=== PATIENT | female | born 1950 | race Caucasian/White ===

== ENCOUNTER 2018-01-16 11:46 | Day surgery (SDC) | payer MEDICARE, SELFPAY ==
[2018-01-16] VITALS (7 sets, daily range): BP systolic 110–116; BP diastolic 68–89; PULSE 57–78; RESP 11–20; TEMP 36.2–36.4; O2SAT 96–100; BMI 30.7
[2018-01-16] MEDS: SODIUM CHLORIDE 0.9% 1,000 ML 200 ML IV (13:21)
[2018-01-16] MEDS: MIDAZOLAM 5 MG/5 ML VIAL IV (14:04)
[2018-01-16] MEDS: fentaNYL 250 MCG/5 ML INJ IV (14:06)
--- NOTE | 2018-01-16 20:08 | OP_ITS ---
DATE OF SERVICE: 01/16/2018 PREOP DIAGNOSIS: Screening colonoscopy. POSTOP DIAGNOSES: Screening colonoscopy with sigmoid diverticulosis. OPERATION: Total colonoscopy to the cecum. SURGEON: Christos Bundy MD DESCRIPTION OF PROCEDURE: The patient was given conscious sedation, properly identified during surgical pause. The flexible fiberoptic colonoscope was inserted transanally to the cecum. Total IV sedation administered was Versed 6, fentanyl 250. Patient has sigmoid diverticulosis with some narrowing of the sigmoid. No tumors or polyps are identified anywhere in the colon. The colon is extremely tortuous, making this a rather difficult colonoscopy. However, I was able to pass the scope tip to the cecum. Again, there were no tumors, no polyps, no ulcerations. The procedure was well tolerated. FINAL DIAGNOSIS: Sigmoid diverticulosis. Basilia Ferreira - Shine/jeison doc#: [id number]/job#: [id number] dd: 01/16/2018 14:13:00 dt: 01/16/2018 20:04:00 DICTATING MD/COPIES TO: Christos Bundy MD COPIES MNE: MOE
--- NOTE | 2018-01-19 07:51 | HP_ITS ---
DATE OF SERVICE: 01/16/2018 PREOPERATIVE HISTORY AND PHYSICAL EXAMINATION HISTORY OF PRESENT ILLNESS: Patient's coming in for screening colonoscopy. She is asymptomatic. No abdominal pain. No melena. No hematochezia. She has never had a colonoscopy. PAST SURGICAL HISTORY: She's had a tubal ligation, tonsillectomy. No other surgery. PAST MEDICAL HISTORY: Denies heart disease, myocardial infarction, diabetes, stroke, hypertension. ALLERGIES: SHE HAS NO MEDICAL ALLERGIES. MEDICATIONS: She takes no medications at home. REVIEW OF SYSTEMS: Negative for exertional chest pain, anginal shortness of breath. GI is negative. : Negative. NEUROLOGIC: No strokes or TIAs. PHYSICAL EXAMINATION VITAL SIGNS: Blood pressure 120/80, heart rate 80s, regular. HEENT: Ears, nose, and throat normal. NECK: No adenopathy. CHEST: Lungs are clear. HEART: Regular rate and rhythm. No murmur. ABDOMEN: Soft, nontender. No masses. : Rectal will be done at time of colonoscopy. ASSESSMENT: Patient is here for a screening colonoscopy. Asymptomatic. Basilia Ferreira - /hannah/jeison doc#: [id number]/job#: [id number] dd: 01/16/2018 13:01:00 dt: 01/16/2018 14:06:00 DICTATING /COPIES TO: Christos Bundy MD COPIES MNE: MOE
== END 2018-01-16 15:08 | disposition home or self-care (01) ==
PROVIDERS: PCP Physician Assistant; Visit Provider Surgery
PROC: 0DJD8ZZ Inspection of Lower Intestinal Tract, Via Natural or Artificial Opening Endoscopic (ICD-10-PCS; CPT 45378; principal; 2018-01-16 12:45)
DX: Z12.11 Encounter for screening for malignant neoplasm of colon (principal); K57.30 Diverticulosis of large intestine without perforation or abscess without bleeding
CPT/HCPCS: G0121; J2250; J3010

== ENCOUNTER → 2020-05-12 08:23 | Outpatient (CLI) | payer MEDICARE, SELFPAY ==
[2020-05-12] MEDS: COVID-19 VACC #1, MRNA(MOD) 100 MCG/0.5 ML VIAL IM (08:27)
== END ==
PROVIDERS: PCP Physician Assistant; Visit Provider Internal Medicine
DX: Z23 Encounter for immunization (principal)
CPT/HCPCS: 0011A; 91301

== ENCOUNTER → 2020-06-09 10:23 | Outpatient (CLI) | payer MEDICARE, SELFPAY ==
[2020-06-09] MEDS: COVID-19 VACC #2, MRNA(MOD) 100 MCG/0.5 ML VIAL IM (10:28)
== END ==
PROVIDERS: PCP Physician Assistant; Visit Provider Internal Medicine
DX: Z23 Encounter for immunization (principal)
CPT/HCPCS: 0012A; 91301

== ENCOUNTER → 2021-05-12 11:42 | Outpatient (CLI) | payer MEDICARE, SELFPAY ==
[2021-05-12 12:59] LABS: COVID19 -Nasal RAPID Negative (Negative)
== END ==
PROVIDERS: PCP Physician Assistant; Visit Provider Physician Assistant
DX: Z20.822 Contact with and (suspected) exposure to COVID-19 (principal)
CPT/HCPCS: 87635

== ENCOUNTER → 2021-05-13 14:52 | Outpatient (CLI) | payer MEDICARE, SELFPAY ==
[2021-05-13 16:24] LABS: COVID19 -Nasal RAPID Negative (Negative)
== END ==
PROVIDERS: PCP Physician Assistant; Referring Provider Nurse Practitioner Critical Care Medicine; Visit Provider Nurse Practitioner Critical Care Medicine
DX: N39.0 Urinary tract infection, site not specified (principal); Z20.822 Contact with and (suspected) exposure to COVID-19
CPT/HCPCS: 87086; 87635

== ENCOUNTER 2021-05-13 15:51 | Emergency (ER) | payer MEDICARE, SELFPAY ==
[2021-05-13] VITALS (7 sets, daily range): BP systolic 102–121; BP diastolic 55–80; PULSE 94–117; RESP 20; TEMP 37.7; O2SAT 93–95; BMI 28.5
--- NOTE | 2021-05-13 16:09 | DI.RAD.S_ITS ---
PROCEDURE: XR CHEST 1V INDICATIONS: cough TECHNIQUE: One view of the chest was acquired. COMPARISON: None. FINDINGS: Surgical changes and devices: None. Lungs and pleura: Lungs are clear. No pleural effusions or pneumothorax. Elevated right hemidiaphragm Mediastinum: Mediastinal contours appear normal. Heart size is normal. Bones and chest wall: No suspicious bony lesions. Overlying soft tissues appear unremarkable. IMPRESSION: Elevated right hemidiaphragm. No acute cardiopulmonary findings Approved by: Emigdio Ellis M.D. on 05/13/2021 at 16:18
--- NOTE | 2021-05-13 16:09 | DI.CT.S_ITS ---
PROCEDURE: CT ABDOMEN PELVIS WO CON INDICATIONS: abdominal pain TECHNIQUE: After the administration of oral contrast, 5 mm thick sections acquired from the diaphragms to the symphysis. 5 mm coronal and sagittal reformats were performed. For radiation dose reduction, the following was used: automated exposure control, adjustment of mA and/or kV according to patient size. COMPARISON: None. FINDINGS: Lower thorax: The lung bases are clear. Heart size normal. No hiatal hernia. Liver: Normal in size and attenuation. No contour deformity present. Subcentimeter right hepatic hypodensity too small to characterize but probably reflects cyst. Biliary system: No calcified cholelithiasis or pericholecystic inflammation. No intra or extrahepatic bile duct dilatation. Pancreas: Unremarkable without mass or inflammation evident. Spleen: Normal in size and density. Adrenals: Normal morphology and density. Reproductive system: Unremarkable as visualized. Urinary system: Right kidney is enlarged, edematous, and there is perinephric stranding present with moderate hydronephrosis and hydroureter extending to a 5 mm ureteral calculus at the ureterovesical junction. Left kidney unremarkable without hydronephrosis. No nonobstructing calculi. Hypodensity in the right renal anterior cortex, subcentimeter, is probably reflects cyst. Gastrointestinal system: The bowel is unremarkable without evidence of bowel obstruction or inflammation. The stomach appears unremarkable. Multiple diverticula arise from the sigmoid colon without evidence of diverticulitis. Appendix: Normal appendix identified. No evidence of appendicitis. Peritoneal spaces: No mesenteric or retroperitoneal adenopathy. No free air. No free fluid. Vasculature: The IVC, aorta and iliac vasculature are unremarkable. Abdominal wall: Abdominal wall intact without evidence of ventral or inguinal hernias. Musculoskeletal: Normal bone mineralization. No acute fractures. Convex left thoracolumbar scoliosis noted. IMPRESSION: 1. Moderate right hydronephrosis hydroureter results from 5 mm right ureterovesical junction calculus. Associated right renal enlargement and edema with perinephric stranding. 2. Incidental diverticulosis without evidence of diverticulitis. Approved by: Emigdio Ellis M.D. on 05/13/2021 at 15:53
--- NOTE | 2021-05-13 16:12 | ED_ITS ---
HPI - Sepsis <Phillip Bullock PA-C - Last Filed: 05/13/21 18:06> General Chief Complaint: Upper Respiratory Symptoms Evaluation Narrative: Patient is a 70-year-old female who comes to the ED complaining of fatigue, weakness, nausea, vomiting, diarrhea, lower abdominal pain for the past week. Patient reports that she has done 3 at home tests was tested yesterday and was negative and was tested today for COVID. Patient is immunized for COVID however has not had a flu vaccine yet. Patient reports her vomiting and diarrhea have been over the last couple of days. Patient is not currently nauseated at this time. Patient denies headache fever chills. Review of Systems <Phillip Bullock PA-C - Last Filed: 05/13/21 18:06> Review of Systems ROS Unobtainable: All systems reviewed & are unremarkable except as noted in HPI and below Constitutional Constitutional: Denies chills, Reports fatigue, Reports fever(s), Denies frequent falls, Denies lethargy and Reports weakness Eyes Eyes: Denies change in vision, Denies eye discharge, Denies irritation and De nies loss of vision ENT Ears, Nose, Mouth, and Throat: Denies change in voice, Denies dizziness, Denies neck pain, Denies sore throat and Denies throat swelling Cardiovascular Cardiovascular: Denies chest pain, Denies irregular heart rhythm, Denies lightheadedness, Denies palpitations, Denies dyspnea, Denies dyspnea on exertion and Denies orthopnea Respiratory Respiratory: Denies cough, Denies dyspnea, Denies dyspnea on exertion and Denies wheezing Gastrointestinal Gastrointestinal: Denies abdominal pain, Denies change in bowel habits, Denies diarrhea, Denies nausea and Denies vomiting Genitourinary Genitourinary: Reports hematuria, Reports dysuria, Denies flank pain, Denies urinary incontinence and Reports urinary urgency Musculoskeletal Musculoskeletal: Denies back pain, Denies muscle weakness, Denies neck pain, Denies numbness and Denies tingling Integumentary/Breasts Skin/Breast: Denies pruritus, Denies erythema, Denies rash and Denies wounds Neurologic Neurologic: Denies behavioral changes, Denies confusion, Denies dizziness, Denies frequent falls, Denies loss of vision, Denies numbness, Denies tingling and Reports weakness Psychiatric Psychiatric: Denies anxiety, Denies behavioral changes, Denies confusion, Denies depression, Denies homicidal ideation and Denies suicidal ideation Endocrine Endocrine: Reports fatigue, Denies flushing and Denies palpitations Hematologic/Lymphatic Hematologic/Lymphatic: Denies easy bruising Allergic/Immunologic Allergic/Immunologic: Denies urticaria, Denies throat swelling and Denies wheezing Patient History <Phillip Bullock PA-C - Last Filed: 05/13/21 18:06> Medical History Acute viral syndrome Social History household members: spouse Smoking Status: Former smoker Smoking Status: Former smoker Exam <Phillip Bullock PA-C - Last Filed: 05/13/21 18:06> Initial Vital Signs Initial Vital Signs: Vital Signs Temperature 99.9 F H 05/13/21 16:07 Pulse Rate 117 H 05/13/21 16:07 Respiratory Rate 20 05/13/21 16:07 Blood Pressure 121/80 05/13/21 16:07 Pulse Oximetry 93 05/13/21 16:07 Const General: cooperative, healthy appearing and comfortable Nutritional Appearance: average body habitus Orientation: Orientation [facility] Head: normal to inspection Ears: hearing grossly normal bilaterally Nose: external nose normal Face and sinus: normal facial exam Mouth: oral mucosae normal Eyes General: appearance normal, both eyes and all related structures Pupils: PERRL Neck Neck: normal visual inspection, full ROM and no meningeal signs Thyroid: thyroid normal Resp Effort & Inspection: normal respiratory effort and able to speak in complete sentences Auscultation: clear to auscultation bilaterally Cardio Palpation: normal PMI Rate: regular rate Rhythm: regular rhythm GI Inspection: normal to inspection Palpation: soft and no hepatosplenomegaly Percussion: normal to percussion Auscultation: normal bowel sounds Neuro General: patient alert, patient awake and patient oriented x3 Cranial Nerves: CN's II-XI intact bilaterally <Zakiya Edwards MD - Last Filed: 05/14/21 08:30> Initial Vital Signs Initial Vital Signs: Vital Signs Temperature 99.9 F H 05/13/21 16:07 Pulse Rate 117 H 05/13/21 16:07 Respiratory Rate 20 05/13/21 16:07 Blood Pressure 121/80 05/13/21 16:07 Pulse Oximetry 93 05/13/21 16:07 Course <Phillip Bullock PA-C - Last Filed: 05/13/21 18:06> Orders Ordered: Discontinued Medications Hydrocodone Bitart/Acetaminophen (Hydrocodone/Acet 10/325 Tablet) 1 tab PO NOW ONE Stop: 05/13/21 18:24 Last Admin: 05/13/21 18:30 Dose: Not Given Documented by: ATAYLOR Nitrofurantoin Macrocrystals (Nitrofurantoin Er 100 Mg Capsule) 100 mg PO NOW ONE Stop: 05/13/21 18:24 Last Admin: 05/13/21 18:28 Dose: 100 mg Documented by: TOBIYLOR Tamsulosin HCl (Tamsulosin 0.4 Mg Capsule) 0.4 mg PO NOW ONE Stop: 05/13/21 18:24 Last Admin: 05/13/21 18:28 Dose: 0.4 mg Documented by: MARY KAY Vital Signs Vital signs: Vital Signs - 8 hr 05/13/21 16:07 05/13/21 16:28 05/13/21 16:30 Temperature 99.9 F H Pulse Rate 117 H 102 H 101 H Respiratory Rate 20 Blood Pressure 121/80 Pulse Oximetry 93 95 94 05/13/21 17:00 Temperature Pulse Rate 98 H Respiratory Rate Blood Pressure 107/67 Pulse Oximetry 93 <Zakiya Edwards MD - Last Filed: 05/14/21 08:30> Orders Ordered: Discontinued Medications Hydrocodone Bitart/Acetaminophen (Hydrocodone/Acet 10/325 Tablet) 1 tab PO NOW ONE Stop: 05/13/21 18:24 Last Admin: 05/13/21 18:30 Dose: Not Given Documented by: ATAYLOR Nitrofurantoin Macrocrystals (Nitrofurantoin Er 100 Mg Capsule) 100 mg PO NOW ONE Stop: 05/13/21 18:24 Last Admin: 05/13/21 18:28 Dose: 100 mg Documented by: MAGALYOR Tamsulosin HCl (Tamsulosin 0.4 Mg Capsule) 0.4 mg PO NOW ONE Stop: 05/13/21 18:24 Last Admin: 05/13/21 18:28 Dose: 0.4 mg Documented by: MARY KAY Vital Signs Vital signs: Vital Signs - 8 hr 05/13/21 16:07 05/13/21 16:28 05/13/21 16:30 Temperature 99.9 F H Pulse Rate 117 H 102 H 101 H Respiratory Rate 20 Blood Pressure 121/80 Pulse Oximetry 93 95 94 05/13/21 17:00 Temperature Pulse Rate 98 H Respiratory Rate Blood Pressure 107/67 Pulse Oximetry 93 Sepsis Guideline Criteria <Phillip Bullock PA-C - Last Filed: 05/13/21 18:06> Treatment Initiated Antibiotics:: IV antimicrobials will be initiated as soon as possible after recognition of sepsis state and within one hour for both sepsis and septic shock. MDM - Sepsis <Phillip Bullock PA-C - Last Filed: 05/13/21 18:06> Differential Diagnosis Current stage of sepsis: ruled out Lab Data Result diagrams: 05/13/21 16:10 05/13/21 16:10 Labs: Lab Results 05/13/21 05/13/21 05/13/21 Range/Units 16:10 16:10 16:31 WBC 19.3 H (4.5-11.0) X10^3/uL RBC 4.25 (4.0-5.2) X10^6/uL Hgb 13.4 (12.0-16.0) g/dL Hct 38.9 (36-46) % MCV 91.7 (80-100) fL MCH 31.6 (26-34) PG MCHC 34.4 (30-36) % RDW 12.9 (11.6-14.8) % Plt Count 151 (150-400) X10^3/uL Neut % (Auto) 92.6 H (50-75) % Lymph % (Auto) 3.6 L (25-40) % Taney % (Auto) 3.7 (3-14) % Eos % (Auto) 0.0 L (2-4) % Baso % (Auto) 0.1 (0-2) % Neut # (Auto) 96860 H (2974-1020) /uL Lymph # (Auto) 700 L (4188-5911) /uL Taney # (Auto) 700 (0-900) /uL Eos # (Auto) 0 (0-450) /uL Baso # (Auto) 0 (0-100) /uL Sodium 129 L (137-145) mmol/L Potassium 3.4 (3.4-5.1) mmol/L Chloride 96 L (98-107) mmol/L Carbon Dioxide 26 (22-32) mmol/L BUN 14 (7-17) mg/dL Creatinine 0.76 (0.52-1.04) mg/dL Estimated GFR > 60.0 (>60) mL/min BUN/Creatinine Ratio 18.4 (6-22) Glucose 125 H (80-110) mg/dL Calcium 9.2 (8.4-10.2) mg/dL Total Bilirubin 0.7 (0.2-1.3) mg/dL AST 62 H (14-36) IU/L ALT 49 H (<35) IU/L Alkaline Phosphatase 88 (38-126) U/L Total Protein 6.6 (6.3-8.2) g/dL Albumin 3.5 (3.5-5.0) g/dL Globulin 3.1 (1.7-4.1) g/dL Albumin/Globulin Ratio 1.1 (1.0-2.8) Lipase 22 L (23-300) U/L Chlamy pneumoniae PCR Not detected (Not Detect) Adenovirus (PCR) Not detected (Not Detect) B. pertussis DNA (PCR) Not detected (Not Detecte) B.parapertussis DNA PCR Not detected (Not Detecte) Coronavirus OC43 (PCR) Not detected (Not Detect) Coronavirus HKU1 (PCR) Not detected (Not Detect) Coronavirus 229E (PCR) Not detected (Not Detect) SARS-CoV-2 (PCR) Not detected (Not Detecte) Coronavirus NL63 (PCR) Not detected (Not Detect) Human Metapneumovir PCR Not detected (Not Detect) Influenza Type A (PCR) Not detected (Not Detect) Influenza Type B (PCR) Not detected (Not Detect) M. pneumoniae (PCR) Not detected (Not Detect) Parainfluenza 1 (PCR) Not detected (Not Detect) Parainfluenza 2 (PCR) Not detected (Not Detect) Parainfluenza 3 (PCR) Not detected (Not Detect) Parainfluenza 4 (PCR) Not detected (Not Detect) RSV (PCR) Not detected (Not Detect) Entero/Rhino (PCR) Not detected (Not Detect) Imaging Data Chest x-ray: Radiologist's Impression: PROCEDURE:? XR CHEST 1V ? INDICATIONS:? cough ? TECHNIQUE:? One view of the chest was acquired.? ? COMPARISON:? None. ? FINDINGS:? ? Surgical changes and devices:? None.? ? Lungs and pleura:? Lungs are clear.? No pleural effusions or pneumothorax.? Elevated right hemidiaphragm ? Mediastinum:? Mediastinal contours appear normal.? Heart size is normal.? ? Bones and chest wall:? No suspicious bony lesions.? Overlying soft tissues appear unremarkable.? ? IMPRESSION:? Elevated right hemidiaphragm.? No acute cardiopulmonary findings ? ? ? Approved by: Emigdio Ellis M.D. on 05/13/2021 at 16:18? CT Abd/Pelvis: Radiologist's Impression: PROCEDURE:? CT ABDOMEN PELVIS WO CON ? INDICATIONS:? abdominal pain ? TECHNIQUE:? After the administration of oral contrast, 5 mm thick sections acquired from the diaphragms to the symphysis.? 5 mm coronal and sagittal reformats were performed.? For radiation dose reduction, the following was used:? automated exposure control, adjustment of mA and/or kV according to patient size.? ? COMPARISON:? None. ? FINDINGS: ? Lower thorax: The lung bases are clear.? Heart size normal.? No hiatal hernia. ? Liver:? Normal in size and attenuation. No contour deformity present.? Subcentimeter right hepatic hypodensity too small to characterize but probably reflects cyst. ? Biliary system:? No calcified cholelithiasis or pericholecystic inflammation. No intra or extrahepatic bile duct dilatation. ? Pancreas:? Unremarkable without mass or inflammation evident. ? Spleen:? Normal in size and density. ? Adrenals:? Normal morphology and density. ? Reproductive system:? Unremarkable as visualized. ? Urinary system:? Right kidney is enlarged, edematous, and there is perinephric stranding present with moderate hydronephrosis and hydroureter extending to a 5 mm ureteral calculus at the ureterovesical junction.? Left kidney unremarkable without hydronephrosis.? No nonobstructing calculi.? Hypodensity in the right renal anterior cortex, subcentimeter, is probably reflects cyst. ? Gastrointestinal system:? The bowel is unremarkable without evidence of bowel obstruction or inflammation. The stomach appears unremarkable.? Multiple diverticula arise from the sigmoid colon without evidence of diverticulitis. ? ? Appendix:? Normal appendix identified.? No evidence of appendicitis. ? Peritoneal spaces:? No mesenteric or retroperitoneal adenopathy.? No free air.? No free fluid.? ? Vasculature:? The IVC, aorta and iliac vasculature are unremarkable. ? Abdominal wall:? Abdominal wall intact without evidence of ventral or inguinal hernias. ? Musculoskeletal:? Normal bone mineralization.? No acute fractures.? Convex left thoracolumbar scoliosis noted. ? IMPRESSION: ? 1. Moderate right hydronephrosis hydroureter results from 5 mm right ureterovesical junction calculus.? Associated right renal enlargement and edema with perinephric stranding. ? 2. Incidental diverticulosis without evidence of diverticulitis. MDM Narrative Medical decision making narrative: Patient was seen in the ED for fatigue right-sided low back pain lower abdominal pain dysuria. Lab workup and imaging studies revealed a neutrophilic leukocyto sis with a kidney stone on the right side with mild hydronephrosis measuring 5 mm. Urine revealed evidence of a urinary tract infection and chemistry panel showed mild hyponatremia. Spoke with patient about the lab findings patient would prefer to be treated outpatient. I spoke to her about increasing her salt intake with to help correct the mild hyponatremia an antibiotic will be prescribed for urinary infection some Flomax will also be prescribed to help pass her kidney stone. I advised her if there was no improvement in her symptoms the next day or 2 to return to the ED or follow-up with PCP. All questions and concerns were addressed. <Zakiya Edwards MD - Last Filed: 05/14/21 08:30> Lab Data Labs: Lab Results 05/13/21 05/13/21 05/13/21 Range/Units 16:10 16:10 16:31 WBC 19.3 H (4.5-11.0) X10^3/uL RBC 4.25 (4.0-5.2) X10^6/uL Hgb 13.4 (12.0-16.0) g/dL Hct 38.9 (36-46) % MCV 91.7 (80-100) fL MCH 31.6 (26-34) PG MCHC 34.4 (30-36) % RDW 12.9 (11.6-14.8) % Plt Count 151 (150-400) X10^3/uL Neut % (Auto) 92.6 H (50-75) % Lymph % (Auto) 3.6 L (25-40) % Taney % (Auto) 3.7 (3-14) % Eos % (Auto) 0.0 L (2-4) % Baso % (Auto) 0.1 (0-2) % Neut # (Auto) 83135 H (8955-5649) /uL Lymph # (Auto) 700 L (8341-9222) /uL Taney # (Auto) 700 (0-900) /uL Eos # (Auto) 0 (0-450) /uL Baso # (Auto) 0 (0-100) /uL Sodium 129 L (137-145) mmol/L Potassium 3.4 (3.4-5.1) mmol/L Chloride 96 L (98-107) mmol/L Carbon Dioxide 26 (22-32) mmol/L BUN 14 (7-17) mg/dL Creatinine 0.76 (0.52-1.04) mg/dL Estimated GFR > 60.0 (>60) mL/min BUN/Creatinine Ratio 18.4 (6-22) Glucose 125 H (80-110) mg/dL Calcium 9.2 (8.4-10.2) mg/dL Total Bilirubin 0.7 (0.2-1.3) mg/dL AST 62 H (14-36) IU/L ALT 49 H (<35) IU/L Alkaline Phosphatase 88 (38-126) U/L Total Protein 6.6 (6.3-8.2) g/dL Albumin 3.5 (3.5-5.0) g/dL Globulin 3.1 (1.7-4.1) g/dL Albumin/Globulin Ratio 1.1 (1.0-2.8) Lipase 22 L (23-300) U/L Chlamy pneumoniae PCR Not detected (Not Detect) Adenovirus (PCR) Not detected (Not Detect) B. pertussis DNA (PCR) Not detected (Not Detecte) B.parapertussis DNA PCR Not detected (Not Detecte) Coronavirus OC43 (PCR) Not detected (Not Detect) Coronavirus HKU1 (PCR) Not detected (Not Detect) Coronavirus 229E (PCR) Not detected (Not Detect) SARS-CoV-2 (PCR) Not detected (Not Detecte) Coronavirus NL63 (PCR) Not detected (Not Detect) Human Metapneumovir PCR Not detected (Not Detect) Influenza Type A (PCR) Not detected (Not Detect) Influenza Type B (PCR) Not detected (Not Detect) M. pneumoniae (PCR) Not detected (Not Detect) Parainfluenza 1 (PCR) Not detected (Not Detect) Parainfluenza 2 (PCR) Not detected (Not Detect) Parainfluenza 3 (PCR) Not detected (Not Detect) Parainfluenza 4 (PCR) Not detected (Not Detect) RSV (PCR) Not detected (Not Detect) Entero/Rhino (PCR) Not detected (Not Detect) Discharge Plan Departure Patient Disposition: Home Clinical Impression: Right kidney stone, Complicated UTI (urinary tract infection), Acute hyponatremia Instructions: DI for Kidney Stones, DI for Urinary Tract Infection (UTI), DI for Hyponatremia Activity Restrictions/Additional Instructions: Today you were found to have a urinary tract infection a kidney stone measuring 5 mm in the right ureter causing some mild hydronephrosis of the right kidney and hyponatremia which is low sodium level. I will prescribe pain medication that I would take only as needed and I will also prescribe Flomax that will help to dilate your ureters to help passed her kidney stone. I would recommend you increase your salt intake with her food for the next day or 2 until your symptom s have resolved. The symptoms would include fatigue nausea and vomiting. The pain that is in her lower pelvis and right lower back is from the kidney stone and likely from the urinary tract infection. The symptoms should improve over the next few days as she take your antibiotic and help pass her kidney stones. If you have no improvement in your symptoms over the next day or 2 return to the ED immediately for re-evaluation. Otherwise you can follow-up with her primary care doctor in 1 week. Prescriptions: New tamsulosin [Flomax] 0.4 mg capsule 0.4 mg PO DAILY Qty: 14 0RF nitrofurantoin monohyd/m-cryst [Macrobid] 100 mg capsule 100 mg PO Q12H 5 Days Qty: 10 0RF Rx Instructions: must administer with a meal/food hydrocodone-acetaminophen 7.5-325 mg tablet 1 tab PO Q8H PRN (Reason: pain) Qty: 7 0RF No Action ibuprofen 200 mg tablet PO TID Qty: 0 0RF hydrocodone-acetaminophen [[place]] 5 MG/325 MG tablet 1 tab PO Q4HP PRNQty: 10 0RF tamsulosin [Flomax] 0.4 MG capsule,extended release 24hr 0.4 mg PO QDAY Qty: 10 0RF ondansetron [Zofran ODT] 4 MG tablet,disintegrating 4 mg Sublingual Q6HP PRNQty: 10 0RF Referrals: Brittany Bernal PA-C [Primary Care Provider] - <Zakiya Edwards MD - Last Filed: 05/14/21 08:30> Cosign ED Attending Cosignature Attestation: I was immediately available in the department for consultation throughout this patient's visit. I agree with documentation as above. Zakiya Edwards MD
[2021-05-13 16:15] LABS: Add Manual Diff / Slide Review NO; Basophils Absolute Auto 0 /uL (0-100); Basophils Percent Auto 0.1 % (0-2); Eosinophils Absolute Auto 0 /uL (0-450); Hematocrit 38.9 % (36-46); Hemoglobin 13.4 g/dL (12.0-16.0); Lymphocytes Absolute Auto 700 /uL (1100-4500); Lymphocytes Percent Auto 3.6 % (25-40); Mean Corpuscular HGB Conc 34.4 % (30-36); Mean Corpuscular Hemoglobin 31.6 PG (26-34); Mean Corpuscular Volume 91.7 fL (80-100); Monocytes Absolute Auto 700 /uL (0-900); Monocytes Percent Auto 3.7 % (3-14); Neutrophils Absolute Auto 17900 /uL (1500-7000); Neutrophils Percent Auto 92.6 % (50-75); Platelet Count 151 X10^3/uL (150-400); Red Blood Cell Count 4.25 X10^6/uL (4.0-5.2); Red Cell Distribution Width 12.9 % (11.6-14.8); White Blood Cell Count 19.3 X10^3/uL (4.5-11.0)
[2021-05-13 16:28] LABS: Alanine Aminotransferase 49 IU/L (<35); Albumin 3.5 g/dL (3.5-5.0); Albumin Globulin Ratio 1.1 (1.0-2.8); Alkaline Phosphatase 88 U/L (38-126); Aspartate Aminotransferase 62 IU/L (14-36); BUN Creatinine Ratio 18.4 (6-22); Bilirubin Total 0.7 mg/dL (0.2-1.3); Blood Urea Nitrogen 14 mg/dL (7-17); Calcium 9.2 mg/dL (8.4-10.2); Carbon Dioxide 26 mmol/L (22-32); Chloride 96 mmol/L (98-107); Estimated Glomerular Filt Rate > 60.0 mL/min (>60); Globulin 3.1 g/dL (1.7-4.1); Glucose 125 mg/dL (80-110); HEMOLYSIS < 15 (0-50); Lipase 22 U/L (23-300); Potassium 3.4 mmol/L (3.4-5.1); Sodium 129 mmol/L (137-145); Total Protein 6.6 g/dL (6.3-8.2)
[2021-05-13 17:30] LABS: Adenovirus Not Detected (Not Detect); B. parapertussis Not Detected (Not Detecte); Bordetella pertussis Not Detected (Not Detecte); Chlamydophila pneumoniae Not Detected (Not Detect); Coronavirus 229E Not Detected (Not Detect); Coronavirus HKU1 Not Detected (Not Detect); Coronavirus NL 63 Not Detected (Not Detect); Coronavirus OC43 Not Detected (Not Detect); Human Metapneumovirus Not Detected (Not Detect); Human Rhinovirus/Enterovirus Not Detected (Not Detect); Influenza A Not Detected (Not Detect); Influenza B Not Detected (Not Detect); Mycoplasma pneumoniae Not Detected (Not Detect); Parainfluenza Virus 1 Not Detected (Not Detect); Parainfluenza Virus 2 Not Detected (Not Detect); Parainfluenza Virus 3 Not Detected (Not Detect); Parainfluenza Virus 4 Not Detected (Not Detect); Respiratory Syncytial Virus Not Detected (Not Detect); SARS- CoV-2 Not Detected (Not Detecte)
[2021-05-13] MEDS: NITROFURANTOIN ER 100 MG CAPSULE PO (18:28)
[2021-05-13] MEDS: TAMSULOSIN 0.4 MG CAPSULE PO (18:28)
== END 2021-05-13 18:32 | disposition home or self-care (01) ==
PROVIDERS: Emergency Provider Physician Assistant; PCP Physician Assistant
DX: N13.2 Hydronephrosis with renal and ureteral calculous obstruction (principal); N39.0 Urinary tract infection, site not specified; E87.1 Hypo-osmolality and hyponatremia; R19.7 Diarrhea, unspecified; Z20.822 Contact with and (suspected) exposure to COVID-19
CPT/HCPCS: 36415; 71045; 74176; 80053; 83690; 85025; 87077; 87086; 87186; 87633; 87635; 99284

== ENCOUNTER → 2022-03-25 11:40 | Outpatient (CLI) | payer MEDICARE, SELFPAY ==
[2022-03-25 13:26] LABS: Alanine Aminotransferase 26 IU/L (<35); Albumin 4.2 g/dL (3.5-5.0); Albumin Globulin Ratio 1.4 (1.0-2.8); Alkaline Phosphatase 71 U/L (38-126); Aspartate Aminotransferase 26 IU/L (14-36); BUN Creatinine Ratio 27.4 (6-22); Bilirubin Total 0.4 mg/dL (0.2-1.3); Blood Urea Nitrogen 17 mg/dL (7-17); Calcium 9.1 mg/dL (8.4-10.2); Carbon Dioxide 28 mmol/L (22-32); Chloride 106 mmol/L (98-107); Cholesterol 294 mg/dL (140-199); Estimated Glomerular Filt Rate > 60 mL/min (>60); Glucose 98 mg/dL (80-110); HDL Cholesterol 63 mg/dL (40-60); HEMOLYSIS < 15 (0-50); LDL Cholesterol Calculated 207 mg/dL (<100); Magnesium 2.2 mg/dL (1.6-2.3); Potassium 4.1 mmol/L (3.4-5.1); Sodium 139 mmol/L (137-145); Total Protein 7.2 g/dL (6.3-8.2); Triglycerides 119 mg/dL (35-150)
[2022-03-25 13:41] LABS: Free T3, Triiodothyronine Free 3.43 pg/mL (2.77-5.27); Free T4, Direct Thyroxine 1.11 ng/dL (0.78-2.19)
[2022-03-25 13:55] LABS: Thyroid Stimulating Hormone 2.62 uIU/mL (0.47-4.68)
[2022-03-25 16:51] LABS: Hep C Virus Ab w/Reflex Quant NEGATIVE s/c (NEGATIVE)
[2022-03-26 09:37] LABS: Appearance Urine UA CLEAR; Bilirubin Urine UA NEGATIVE (NEGATIVE); Color Urine UA YELLOW; Glucose Urine UA NEGATIVE (Negative); Ketones Urine UA NEGATIVE (NEGATIVE); Leukocyte Esterase Urine UA 1+ (NEGATIVE); Nitrite Urine UA NEGATIVE (Negative); Occult Blood Urine UA NEGATIVE (Negative); Protein Urine UA TRACE (Negative); Urobilinogen Urine UA 0.2 E.U./dL (0.2)
[2022-03-26 09:39] LABS: pH Urine UA 5.5 (4.5-8.0)
[2022-03-26 09:42] LABS: Bacteria Urine Few (2-10); Culture Indicated Urine Specimen Cultured; RBC Urine None Seen (0-5/HPF); Squamous Epithelial Cell Urine 1-5 /HPF (0-5/HPF); WBC Urine 1-5/HPF (0-5/HPF)
[2022-03-26 10:01] LABS: Creatinine Urine Random 125.4 mg/dL
[2022-03-26 10:06] LABS: Microalbumi Creatinin Ratio Ur 7.9 ug/mg CR (<30)
== END ==
PROVIDERS: PCP Nurse Practitioner; Referring Provider Nurse Practitioner; Visit Provider Nurse Practitioner
DX: Z11.59 Encounter for screening for other viral diseases (principal); Z13.6 Encounter for screening for cardiovascular disorders; Z87.898 Personal history of other specified conditions; R00.0 Tachycardia, unspecified; Z12.11 Encounter for screening for malignant neoplasm of colon; R25.2 Cramp and spasm; R30.0 Dysuria
CPT/HCPCS: 36415; 80053; 80061; 81001; 82043; 82570; 83735; 84439; 84443; 84481; 86803; 87077; 87086; 87186

== ENCOUNTER → 2022-03-26 08:46 | Outpatient (CLI) | payer MEDICARE, SELFPAY ==
[2022-04-02 08:45] LABS: Fecal Immunochemical Test Negative (Negative)
== END ==
PROVIDERS: PCP Nurse Practitioner; Referring Provider Nurse Practitioner; Visit Provider Nurse Practitioner
DX: R00.0 Tachycardia, unspecified (principal); Z11.59 Encounter for screening for other viral diseases; Z12.11 Encounter for screening for malignant neoplasm of colon; Z13.6 Encounter for screening for cardiovascular disorders; Z87.898 Personal history of other specified conditions
CPT/HCPCS: 82274

== ENCOUNTER → 2022-03-29 15:14 | Outpatient (CLI) | payer MEDICARE, SELFPAY ==
--- NOTE | 2022-03-29 15:15 | DI.MG.S_ITS ---
BILATERAL DIGITAL SCREENING MAMMOGRAM 3D/2D WITH CAD: 03/29/2022 CLINICAL: Routine screening. New Baseline exam. Comparison is made to exam dated: 08/26/2014 mammogram - [facility]. Both breasts are heterogeneously dense, which may obscure small masses (category c / 51-75% glandular tissue). Current study was also evaluated with a Computer Aided Detection (CAD) system. No significant masses, calcifications, or other findings are seen in either breast. There has been no significant interval change. IMPRESSION: NEGATIVE There is no mammographic evidence of malignancy. A 1 year screening mammogram is recommended. Based on the Tyrer Cuzick model (a risk assessment model) the patient's lifetime risk is 5.6% and her 10 year risk is 3.3%. According to the ACR, ACS, and NCCN guidelines, an annual breast MRI exam along with mammogram is recommended if the patient's lifetime risk is 20% or greater. This exam was interpreted at Station ID: [id number]. NOTE: For mammograms, a report in lay terms will be sent to the patient. Approximately 15% of breast malignancies will not be visualized mammographically. In the management of a palpable breast mass, a negative mammogram must not discourage biopsy of a clinically suspicious lesion. Electronically Signed By: Romario watkins/kerri:03/29/2022 20:21:45 letter sent: Normal Exam ACR BI-RADS Category 1: Negative [id number]
== END ==
PROVIDERS: Family Provider Nurse Practitioner; PCP Nurse Practitioner; Referring Provider Nurse Practitioner; Visit Provider Nurse Practitioner
DX: Z12.31 Encounter for screening mammogram for malignant neoplasm of breast (principal); Z13.820 Encounter for screening for osteoporosis; M85.852 Other specified disorders of bone density and structure, left thigh; Z78.0 Asymptomatic menopausal state
CPT/HCPCS: 77063; 77067; 77080

== ENCOUNTER → 2022-04-05 13:07 | Outpatient (CLI) | payer MEDICARE, SELFPAY ==
[2022-04-05 13:41] LABS: Appearance Urine UA CLEAR; Bilirubin Urine UA NEGATIVE (NEGATIVE); Color Urine UA YELLOW; Glucose Urine UA NEGATIVE (Negative); Ketones Urine UA NEGATIVE (NEGATIVE); Leukocyte Esterase Urine UA TRACE (NEGATIVE); Nitrite Urine UA NEGATIVE (Negative); Occult Blood Urine UA NEGATIVE (Negative); Protein Urine UA NEGATIVE (Negative); Urobilinogen Urine UA 0.2 E.U./dL (0.2)
[2022-04-05 13:51] LABS: Bacteria Urine None Seen; Culture Indicated Urine Cult Not Indicated; RBC Urine None Seen (0-5/HPF); Squamous Epithelial Cell Urine 0-1 /HPF (0-5/HPF); WBC Urine 0-1/HPF (0-5/HPF)
== END ==
PROVIDERS: Family Provider Nurse Practitioner; PCP Nurse Practitioner; Referring Provider Nurse Practitioner; Visit Provider Nurse Practitioner
DX: R30.0 Dysuria (principal)
CPT/HCPCS: 81001; 87086

== ENCOUNTER 2022-06-17 16:45 | Outpatient (RCR) | payer MEDICARE, SELFPAY ==
--- NOTE | 2022-05-21 17:45 | PT.OIE ---
Current Diagnoses Pain in right hip (05/21/22) Pain in right knee (05/21/22) Other bursitis of hip, right hip (05/21/22) Iliotibial band syndrome, right leg (05/21/22) Past Medical History (Last Reviewed 05/20/22 @ 11:32 by TAZ Stoner) Acne (~1966) Acute viral syndrome Cataracts, bilateral (~2015) Chicken pox (~1960) Eczema (~2000) Herpes (~1974) History of urinary incontinence (~2020) HLD (hyperlipidemia) Right kidney stone (~2018) Rosacea Past Surgical History (Last Reviewed 05/20/22 @ 11:32 by TAZ Stoner) Anesthesia History of tubal ligation (~1992) Visit Care Team Role Provider Type TAZ Stoner Attending Provider Advanced Access Database Developer Family Provider Primary Care Provider Referring Provider Specialty: Family Practice Address: [address] [place] [address], [facility] Email: [email or web address] Physical Therapy Initial Evaluation PT-OP-A Visit Information Start: 05/21/22 14:07 Freq: Status: Active Protocol: Document 05/21/22 11:15 DCW (Rec: 05/21/22 14:21 DCW [id number]) Out-Patient Physical Therapy Visit Information Visit Information Visit Type Initial Evaluation Visit Start Time 11:15 Visit Stop Time 12:00 Total Visit Minutes 45 Visit Number 1 Number of ASSISTANT GROCERY Visits 0 Evaluation Information Evaluation Date 05/21/22 PT-OP-B Current Condition Start: 05/21/22 14:07 Freq: Status: Active Protocol: Document 05/21/22 11:15 DCW (Rec: 05/21/22 14:21 DC [id number]) Current Condition History of Current Condition Onset Date Approx six month history Current Complaints Right hip and knee pain/ stiffness History of Current Condition Pt is a 71 year old female presenting with complaints of hip and knee pain over the past six months. Pt reports that she had been kneeling a lot while gardening, and was having a lot of increased left knee pain, so she was really babying her left leg and trying to not irritate it, but as it improved, her right hip and knee began to bother her a lot more. Currently hurts the most when first getting up from sitting from an extended period of time. Admits it limits her from walking at her normal speed, and even caused her to trip and fall two days ago, because she couldn't lift her right leg up over an obstacle when out hiking. Reports pain is largely located in the lateral hip and knee, it doesn't feel like it is an actual joint problem, just pain around the area of the joints. Treatment Goals Patient/Caregiver Goals Improve right leg pain and stiffness, improve gait speed PT-OP-C Subjective Start: 05/21/22 14:07 Freq: Status: Active Protocol: Document 05/21/22 11:15 DCW (Rec: 05/21/22 14:21 DCW [id number]) OP-PT Subjective Patient Comments Patient Comments My left knee pain got better after taking it easy for about two months, I'm just wondering why this one is taking so much longer. PT-OP-F Manual Assessment Start: 05/21/22 14:07 Freq: Status: Active Protocol: Document 05/21/22 11:15 DCW (Rec: 05/21/22 14:21 DCW [id number]) Manual Assessments Soft Tissue Assessment Soft Tissue Mobility Assessment Tenderness to palpation 3/4: wincing and withdraw along right lateral hip, knee, and along ITB. Increased, point- specific pain at location of greater trochanteric bursa Joint Mobility Assessment Joint Mobility Assessment Knee and hip mobility WNL during passive testing, although pt exhibits limitations of movement secondary to hamstring tightness PT-OP-L Special Tests Start: 05/21/22 14:07 Freq: Status: Active Protocol: Document 05/21/22 11:15 DCW (Rec: 05/21/22 14:21 DCW [id number]) Special Tests Hip Special Tests Straight Leg Raise Test Results R hamstring tightness at 65? Piriformis Test Results Negative CAROL Test Results Lateral hip tightness right Knee Special Tests Gordo's Test Test Results Positive R PT-OP-M Strength Start: 05/21/22 14:07 Freq: Status: Active Protocol: Document 05/21/22 11:15 DCW (Rec: 05/21/22 14:21 DCW [id number]) Hip Strength Hip Manual Muscle Testing Right Flexion (L2) 4 Good Abduction 4 Good Adduction 4 Good External Rotation 4+ Good+ Internal Rotation 4+ Good+ Left Flexion (L2) 4- Good- Abduction 4- Good- Adduction 4- Good- External Rotation 4+ Good+ Internal Rotation 4+ Good+ Comments Resisted IR results in increased lateral knee pain PT-OP-Q Treatments Start: 05/21/22 14:07 Freq: Status: Active Protocol: Document 05/21/22 11:15 DCW (Rec: 05/21/22 14:21 DCW [id number]) Therapeutic Exercises Supine Exercises ITB Stretch Supine Exercise Name Hamstring stretch into horizontal adduction with strap Side right PT-OP-T Assessment and Plan Start: 05/21/22 14:07 Freq: Status: Active Protocol: Document 05/21/22 11:15 DCW (Rec: 05/21/22 17:45 DCW [id number]) Physical Therapy Assessment Rehab Potential Rehabilitation Potential Good Evaluation Complexity Number of Personal Factors/Comorbidities 1-2 Number of Body Systems Impaired 1-2 Clinical Presentation at Evaluation Stable Impairments Impairments Functional Activities, Functional Mobility,Pain,ROM, Soft Tissue Mobility,Strength, Tone Goals Two Impairment Pt struggles to get her foot up in order to don her socks Brakeshoe Repairer Goal (LTG) Pt to exhibit improved ability to don sock on right foot with improved hip flexion and external rotation to place right foot on left knee. LTG Duration 07/20/22 One Impairment Pt does not have an appropriate home exercise program Short Term Goal (STG) Pt to be independent and compliant with an appropriate HEP STG Duration 06/19/22 Assessment Summary Assessment Pt presents with signs and symptoms consistent with Greater Trochanteric bursitis and ITB syndrome. Pt shows significant, point-specific pain immediately superior to her GT, as well as a more generalized soreness and tightness along entire lateral right thigh. Additionally, pt has some increased tone and tightness at proximal lateral calf. Pt should benefit from skilled therapy focusing on decreasing tone, improving flexibility and strength, decreasing inflammation and pain, and LE strengthening. Physical Therapy Plan Frequency and Duration Frequency of Treatment 1-2x/week Plan of Care Start Date 05/21/22 Plan of Care End Date 07/19/22 Therapeutic Interventions Therapeutic Interventions Home Exercise Program,Joint Mobilizations,Manual Therapy, Neuromuscular Re-education, Patient/Caregiver Education, Self-Care/Home Management,Soft Tissue Mobilization,Taping, Therapeutic Activities, Therapeutic Exercises Modalities Cold Pack/Ice Massage,Electric Stimulation,Hot Packs, Iontophoresis,Ultrasound Other Therapeutic Interventions Iontophoresis with Dexamethasone, 4 mg/mL Next Visit Focus/Plan Next Note Type Treatment Note Next Visit Plan Stretching, strengthening, Ionto
--- NOTE | 2022-05-21 17:45 | PT.OPPOC ---
Physical, Occupational & Speech Therapy At [facility] Current Diagnoses Pain in right hip (05/21/22) Pain in right knee (05/21/22) Other bursitis of hip, right hip (05/21/22) Iliotibial band syndrome, right leg (05/21/22) Visit Care Team Role Provider Type TAZ Stoner Attending Provider Advanced Operations And Maintenance Specialist Family Provider Primary Care Provider Referring Provider Specialty: Family Practice Address: [address] [place] [address], [facility] Email: [email or web address] Plan Of Care PT-OP-T Assessment and Plan Start: 05/21/22 14:07 Freq: Status: Active Protocol: Document 05/21/22 11:15 DCW (Rec: 05/21/22 17:45 DCW [id number]) Physical Therapy Assessment Rehab Potential Rehabilitation Potential Good Evaluation Complexity Number of Personal Factors/Comorbidities 1-2 Number of Body Systems Impaired 1-2 Clinical Presentation at Evaluation Stable Impairments Impairments Functional Activities, Functional Mobility,Pain,ROM, Soft Tissue Mobility,Strength, Tone Goals Two Impairment Pt struggles to get her foot up in order to don her socks Generator Switchboard Operator Goal (LTG) Pt to exhibit improved ability to don sock on right foot with improved hip flexion and external rotation to place right foot on left knee. LTG Duration 07/20/22 One Impairment Pt does not have an appropriate home exercise program Short Term Goal (STG) Pt to be independent and compliant with an appropriate HEP STG Duration 06/19/22 Assessment Summary Assessment Pt presents with signs and symptoms consistent with Greater Trochanteric bursitis and ITB syndrome. Pt shows significant, point-specific pain immediately superior to her GT, as well as a more generalized soreness and tightness along entire lateral right thigh. Additionally, pt has some increased tone and tightness at proximal lateral calf. Pt should benefit from skilled therapy focusing on decreasing tone, improving flexibility and strength, decreasing inflammation and pain, and LE strengthening. Physical Therapy Plan Frequency and Duration Frequency of Treatment 1-2x/week Plan of Care Start Date 05/21/22 Plan of Care End Date 07/19/22 Therapeutic Interventions Therapeutic Interventions Home Exercise Program,Joint Mobilizations,Manual Therapy, Neuromuscular Re-education, Patient/Caregiver Education, Self-Care/Home Management,Soft Tissue Mobilization,Taping, Therapeutic Activities, Therapeutic Exercises Modalities Cold Pack/Ice Massage,Electric Stimulation,Hot Packs, Iontophoresis,Ultrasound Other Therapeutic Interventions Iontophoresis with Dexamethasone, 4 mg/mL Next Visit Focus/Plan Next Note Type Treatment Note Next Visit Plan Stretching, strengthening, Ionto Plan of Care Dates Plan of Care Start Date 05/21/22 Plan of Care End Date 07/19/22 Electronically Signed by: Rafi Avalos, PT 05/21/22 4271 If you are in agreement with this Plan of Care, please return a signed and dated copy. I have reviewed this Plan of Care and certify that the skilled therapy services above are required to meet the patient?s needs. Physician Signature Date Printed Name and Credentials Clinical Instructor Signature Printed Name and Credentials
--- NOTE | 2022-05-23 11:18 | PT.OTN ---
Current Diagnoses Pain in right hip (05/23/22) Pain in right knee (05/23/22) Other bursitis of hip, right hip (05/23/22) Iliotibial band syndrome, right leg (05/23/22) Physical Therapy Treatment Note PT-OP-A Visit Information Start: 05/21/22 14:07 Freq: Status: Active Protocol: Document 05/23/22 10:30 DCW (Rec: 05/23/22 11:17 DCW [id number]) Out-Patient Physical Therapy Visit Information Visit Information Visit Type Treatment Note Visit Start Time 10:30 Visit Stop Time 11:15 Total Visit Minutes 45 Visit Number 2 Number of ADMITTING SUPERVISOR Visits 0 Evaluation Information Evaluation Date 05/21/22 PT-OP-B Current Condition Start: 05/21/22 14:07 Freq: Status: Active Protocol: Document 05/21/22 11:15 DCW (Rec: 05/21/22 14:21 DCW [id number]) Current Condition History of Current Condition Onset Date Approx six month history Current Complaints Right hip and knee pain/ stiffness History of Current Condition Pt is a 71 year old female presenting with complaints of hip and knee pain over the past six months. Pt reports that she had been kneeling a lot while gardening, and was having a lot of increased left knee pain, so she was really babying her left leg and trying to not irritate it, but as it improved, her right hip and knee began to bother her a lot more. Currently hurts the most when first getting up from sitting from an extended period of time. Admits it limits her from walking at her normal speed, and even caused her to trip and fall two days ago, because she couldn't lift her right leg up over an obstacle when out hiking. Reports pain is largely located in the lateral hip and knee, it doesn't feel like it is an actual joint problem, just pain around the area of the joints. Treatment Goals Patient/Caregiver Goals Improve right leg pain and stiffness, improve gait speed PT-OP-C Subjective Start: 05/21/22 14:07 Freq: Status: Active Protocol: Document 05/23/22 10:30 DCW (Rec: 05/23/22 11:17 DCW [id number]) OP-PT Subjective Patient Comments Patient Comments Maybe better. I would say better. I did my exercises twice yesterday, once today. PT-OP-F Manual Assessment Start: 05/21/22 14:07 Freq: Status: Active Protocol: Document 05/21/22 11:15 DCW (Rec: 05/21/22 14:21 DCW [id number]) Manual Assessments Soft Tissue Assessment Soft Tissue Mobility Assessment Tenderness to palpation 3/4: wincing and withdraw along right lateral hip, knee, and along ITB. Increased, point- specific pain at location of greater trochanteric bursa Joint Mobility Assessment Joint Mobility Assessment Knee and hip mobility WNL during passive testing, although pt exhibits limitations of movement secondary to hamstring tightness PT-OP-L Special Tests Start: 05/21/22 14:07 Freq: Status: Active Protocol: Document 05/21/22 11:15 DCW (Rec: 05/21/22 14:21 DCW [id number]) Special Tests Hip Special Tests Straight Leg Raise Test Results R hamstring tightness at 65? Piriformis Test Results Negative CAROL Test Results Lateral hip tightness right Knee Special Tests Gordo's Test Test Results Positive R PT-OP-M Strength Start: 05/21/22 14:07 Freq: Status: Active Protocol: Document 05/21/22 11:15 DCW (Rec: 05/21/22 14:21 DCW [id number]) Hip Strength Hip Manual Muscle Testing Right Flexion (L2) 4 Good Abduction 4 Good Adduction 4 Good External Rotation 4+ Good+ Internal Rotation 4+ Good+ Left Flexion (L2) 4- Good- Abduction 4- Good- Adduction 4- Good- External Rotation 4+ Good+ Internal Rotation 4+ Good+ Comments Resisted IR results in increased lateral knee pain PT-OP-Q Treatments Start: 05/21/22 14:07 Freq: Status: Active Protocol: Document 05/23/22 10:30 DCW (Rec: 05/23/22 11:17 DCW [id number]) Therapeutic Exercises Supine Exercises Psoas stretch Supine Exercise Name Psoas stretch off table edge Side right Hamstring Stretch Supine Exercise Name HS stretch Side right ITB Stretch Supine Exercise Name ITB Stretch Side right Standing Exercises ITB Stretch Standing Exercise Name Standing ITB stretch Side right Step-ups Standing Exercise Name Step-ups Side right Extension Standing Exercise Name Hip Extension Side bilateral Resistance Red Skaters Standing Exercise Name Skaters (combined hip extension/abduction) Side bilateral Resistance Red PT-OP-R Modalities Start: 05/23/22 11:17 Freq: Status: Active Protocol: Document 05/23/22 11:15 DCW (Rec: 05/23/22 11:18 DCW [id number]) Iontophoresis Treatment Right Hip Treatment Medication Dexamethasone (-) Medication Amount (mL) (ml) 1.0 Medication Dosage 4 mg/mL Treatment Polarity Negative to Negative Active Electrode Placement GT Bursa PT-OP-T Assessment and Plan Start: 05/21/22 14:07 Freq: Status: Active Protocol: Document 05/23/22 10:30 DCW (Rec: 05/23/22 11:17 DCW [id number]) Physical Therapy Assessment Impairments Impairments Functional Activities, Functional Mobility,Pain,ROM, Soft Tissue Mobility,Strength, Tone Goals Two Impairment Pt struggles to get her foot up in order to don her socks Graphic Arts Technician Goal (LTG) Pt to exhibit improved ability to don sock on right foot with improved hip flexion and external rotation to place right foot on left knee. LTG Duration 07/20/22 One Impairment Pt does not have an appropriate home exercise program Short Term Goal (STG) Pt to be independent and compliant with an appropriate HEP STG Duration 06/19/22 Assessment Summary Assessment Pt tolerated treatment very well, felt stretching was beneficial, noted that the strengthening exercises did not bother her as much as expected. Physical Therapy Plan Frequency and Duration Frequency of Treatment 1-2x/week Plan of Care Start Date 05/21/22 Plan of Care End Date 07/19/22 Therapeutic Interventions Therapeutic Interventions Home Exercise Program,Joint Mobilizations,Manual Therapy, Neuromuscular Re-education, Patient/Caregiver Education, Self-Care/Home Management,Soft Tissue Mobilization,Taping, Therapeutic Activities, Therapeutic Exercises Modalities Cold Pack/Ice Massage,Electric Stimulation,Hot Packs, Iontophoresis,Ultrasound Other Therapeutic Interventions Iontophoresis with Dexamethasone, 4 mg/mL Next Visit Focus/Plan Next Note Type Treatment Note Next Visit Plan Stretching, strengthening, Ionto
--- NOTE | 2022-05-27 14:20 | PT.OTN ---
Current Diagnoses Pain in right hip (05/27/22) Pain in right knee (05/27/22) Other bursitis of hip, right hip (05/27/22) Iliotibial band syndrome, right leg (05/27/22) Physical Therapy Treatment Note PT-OP-A Visit Information Start: 05/21/22 14:07 Freq: Status: Active Protocol: Document 05/27/22 09:56 NBM (Rec: 05/27/22 10:36 NB [id number]) Out-Patient Physical Therapy Visit Information Visit Information Visit Type Treatment Note Visit Start Time 09:56 Visit Stop Time 10:36 Total Visit Minutes 40 Visit Number 3 Number of FIELD CARE COORDINATOR Visits 1 PT-OP-B Current Condition Start: 05/21/22 14:07 Freq: Status: Active Protocol: Document 05/21/22 11:15 DCW (Rec: 05/21/22 14:21 DCW [id number]) Current Condition History of Current Condition Onset Date Approx six month history Current Complaints Right hip and knee pain/ stiffness History of Current Condition Pt is a 71 year old female presenting with complaints of hip and knee pain over the past six months. Pt reports that she had been kneeling a lot while gardening, and was having a lot of increased left knee pain, so she was really babying her left leg and trying to not irritate it, but as it improved, her right hip and knee began to bother her a lot more. Currently hurts the most when first getting up from sitting from an extended period of time. Admits it limits her from walking at her normal speed, and even caused her to trip and fall two days ago, because she couldn't lift her right leg up over an obstacle when out hiking. Reports pain is largely located in the lateral hip and knee, it doesn't feel like it is an actual joint problem, just pain around the area of the joints. Treatment Goals Patient/Caregiver Goals Improve right leg pain and stiffness, improve gait speed PT-OP-C Subjective Start: 05/21/22 14:07 Freq: Status: Active Protocol: Document 05/27/22 09:56 NBM (Rec: 05/27/22 10:36 NBM [id number]) OP-PT Subjective Patient Comments Patient Comments Pt reports she has congestion and so didn't do her ex's, but her hip is feeling much better. She did stairs at home this morning and is very pleased. She thinks the iontophoresis helped a lot and took it off at 6:30p same day . She tripped on a log a week ago and has a bruise on the front of R thigh and L lujan. PT-OP-F Manual Assessment Start: 05/21/22 14:07 Freq: Status: Active Protocol: Document 05/21/22 11:15 DCW (Rec: 05/21/22 14:21 DCW [id number]) Manual Assessments Soft Tissue Assessment Soft Tissue Mobility Assessment Tenderness to palpation 3/4: wincing and withdraw along right lateral hip, knee, and along ITB. Increased, point- specific pain at location of greater trochanteric bursa Joint Mobility Assessment Joint Mobility Assessment Knee and hip mobility WNL during passive testing, although pt exhibits limitations of movement secondary to hamstring tightness PT-OP-L Special Tests Start: 05/21/22 14:07 Freq: Status: Active Protocol: Document 05/21/22 11:15 DCW (Rec: 05/21/22 14:21 DCW [id number]) Special Tests Hip Special Tests Straight Leg Raise Test Results R hamstring tightness at 65? Piriformis Test Results Negative CAROL Test Results Lateral hip tightness right Knee Special Tests Gordo's Test Test Results Positive R PT-OP-M Strength Start: 05/21/22 14:07 Freq: Status: Active Protocol: Document 05/21/22 11:15 DCW (Rec: 05/21/22 14:21 DCW [id number]) Hip Strength Hip Manual Muscle Testing Right Flexion (L2) 4 Good Abduction 4 Good Adduction 4 Good External Rotation 4+ Good+ Internal Rotation 4+ Good+ Left Flexion (L2) 4- Good- Abduction 4- Good- Adduction 4- Good- External Rotation 4+ Good+ Internal Rotation 4+ Good+ Comments Resisted IR results in increased lateral knee pain PT-OP-Q Treatments Start: 05/21/22 14:07 Freq: Status: Active Protocol: Document 05/27/22 09:56 NBM (Rec: 05/27/22 10:36 NBM [id number]) Therapeutic Exercises Supine Exercises Psoas stretch Supine Exercise Name Psoas stretch off table edge Side right Equipment Used w/ strap for gentle overpressure Comments good feedback response Hamstring Stretch Supine Exercise Name HS stretch Side right ITB Stretch Supine Exercise Name ITB Stretch Side right Sitting Exercises hamstring stretch Sitting Exercise Name seated hamstring stretch Side bilateral Equipment Used standard mesh chair Reps/Minutes 2x30 ea Comments added to HEP Standing Exercises Bandwalk Standing Exercise Name Lateral Side bilateral ITB Stretch Standing Exercise Name Standing ITB stretch Side right Comments cues for form, pt unable to feel Step-ups Standing Exercise Name Step-ups Side right Extension Standing Exercise Name Hip Extension Side bilateral Resistance Red Skaters Standing Exercise Name Skaters (combined hip extension/abduction) Side bilateral Resistance Red PT-OP-R Modalities Start: 05/23/22 11:17 Freq: Status: Active Protocol: Document 05/23/22 11:15 DCW (Rec: 05/23/22 11:18 DCW [id number]) Iontophoresis Treatment Right Hip Treatment Medication Dexamethasone (-) Medication Amount (mL) (ml) 1.0 Medication Dosage 4 mg/mL Treatment Polarity Negative to Negative Active Electrode Placement GT Bursa PT-OP-T Assessment and Plan Start: 05/21/22 14:07 Freq: Status: Active Protocol: Document 05/27/22 09:56 NBM (Rec: 05/27/22 10:36 NBM [id number]) Physical Therapy Assessment Impairments Impairments Functional Activities, Functional Mobility,Pain,ROM, Soft Tissue Mobility,Strength, Tone Goals Two Impairment Pt struggles to get her foot up in order to don her socks Chcf Goal (LTG) Pt to exhibit improved ability to don sock on right foot with improved hip flexion and external rotation to place right foot on left knee. LTG Duration 07/20/22 One Impairment Pt does not have an appropriate home exercise program Short Term Goal (STG) Pt to be independent and compliant with an appropriate HEP (05/27/22): Reviewed ITB stretch. Added seated hamstring stretch to HEP - HO given. STG Duration 06/19/22 Assessment Summary Assessment Pt requires form cues for standing IT band stretching but discontinued in standing due to pt not feeling stretch and instead hyperextending low back into discomfort - pt tolerates supine ITB stretch w / cues for leg position. Pt demonstrates bilateral hip weakess and requires cues for neutral foot position w/ hip strengthening ex's. Pt tends to hyperextend low back w/ hip extension but low back discomfort resolves with cuing for core engagement. Pt provides good feedback response to all stretches and holds for sufficient time independently. Added to HEP: seated HS stretch - HO given. Iontophoresis and ice offered but pt declines due to feeling pain is managed today. Physical Therapy Plan Frequency and Duration Frequency of Treatment 1-2x/week Plan of Care Start Date 05/21/22 Plan of Care End Date 07/19/22 Therapeutic Interventions Therapeutic Interventions Home Exercise Program,Joint Mobilizations,Manual Therapy, Neuromuscular Re-education, Patient/Caregiver Education, Self-Care/Home Management,Soft Tissue Mobilization,Taping, Therapeutic Activities, Therapeutic Exercises Modalities Cold Pack/Ice Massage,Electric Stimulation,Hot Packs, Iontophoresis,Ultrasound Other Therapeutic Interventions Iontophoresis with Dexamethasone, 4 mg/mL Next Visit Focus/Plan Next Note Type Treatment Note Next Visit Plan Stretching, strengthening, Ionto
--- NOTE | 2022-05-31 10:52 | PT.OTN ---
Current Diagnoses Pain in right hip (05/31/22) Pain in right knee (05/31/22) Other bursitis of hip, right hip (05/31/22) Iliotibial band syndrome, right leg (05/31/22) Physical Therapy Treatment Note PT-OP-A Visit Information Start: 05/21/22 14:07 Freq: Status: Active Protocol: Document 05/31/22 10:00 NBM (Rec: 05/31/22 10:51 NBM [id number]) Out-Patient Physical Therapy Visit Information Visit Information Visit Type Treatment Note Visit Start Time 10:01 Visit Stop Time 10:41 Total Visit Minutes 40 Visit Number 4 Number of VENEER SORTER Visits 2 Evaluation Information Evaluation Date 05/21/22 PT-OP-B Current Condition Start: 05/21/22 14:07 Freq: Status: Active Protocol: Document 05/21/22 11:15 DCW (Rec: 05/21/22 14:21 DCW [id number]) Current Condition History of Current Condition Onset Date Approx six month history Current Complaints Right hip and knee pain/ stiffness History of Current Condition Pt is a 71 year old female presenting with complaints of hip and knee pain over the past six months. Pt reports that she had been kneeling a lot while gardening, and was having a lot of increased left knee pain, so she was really babying her left leg and trying to not irritate it, but as it improved, her right hip and knee began to bother her a lot more. Currently hurts the most when first getting up from sitting from an extended period of time. Admits it limits her from walking at her normal speed, and even caused her to trip and fall two days ago, because she couldn't lift her right leg up over an obstacle when out hiking. Reports pain is largely located in the lateral hip and knee, it doesn't feel like it is an actual joint problem, just pain around the area of the joints. Treatment Goals Patient/Caregiver Goals Improve right leg pain and stiffness, improve gait speed PT-OP-C Subjective Start: 05/21/22 14:07 Freq: Status: Active Protocol: Document 05/31/22 10:00 NBM (Rec: 05/31/22 10:51 NBM [id number]) OP-PT Subjective Patient Comments Patient Comments Pt states her hip is continuing to improve but she notices her R knee pain more. She tried to do the ITB stretch at home but is not sure if she's doing it right. She also feels better getting out of her car - she doesn't stiffen up as much. PT-OP-F Manual Assessment Start: 05/21/22 14:07 Freq: Status: Active Protocol: Document 05/21/22 11:15 DCW (Rec: 05/21/22 14:21 DCW [id number]) Manual Assessments Soft Tissue Assessment Soft Tissue Mobility Assessment Tenderness to palpation 3/4: wincing and withdraw along right lateral hip, knee, and along ITB. Increased, point- specific pain at location of greater trochanteric bursa Joint Mobility Assessment Joint Mobility Assessment Knee and hip mobility WNL during passive testing, although pt exhibits limitations of movement secondary to hamstring tightness PT-OP-L Special Tests Start: 05/21/22 14:07 Freq: Status: Active Protocol: Document 05/21/22 11:15 DCW (Rec: 05/21/22 14:21 DCW [id number]) Special Tests Hip Special Tests Straight Leg Raise Test Results R hamstring tightness at 65? Piriformis Test Results Negative CAROL Test Results Lateral hip tightness right Knee Special Tests Gordo's Test Test Results Positive R PT-OP-M Strength Start: 05/21/22 14:07 Freq: Status: Active Protocol: Document 05/21/22 11:15 DCW (Rec: 05/21/22 14:21 DCW [id number]) Hip Strength Hip Manual Muscle Testing Right Flexion (L2) 4 Good Abduction 4 Good Adduction 4 Good External Rotation 4+ Good+ Internal Rotation 4+ Good+ Left Flexion (L2) 4- Good- Abduction 4- Good- Adduction 4- Good- External Rotation 4+ Good+ Internal Rotation 4+ Good+ Comments Resisted IR results in increased lateral knee pain PT-OP-Q Treatments Start: 05/21/22 14:07 Freq: Status: Active Protocol: Document 05/31/22 10:00 NBM (Rec: 05/31/22 10:51 NBM [id number]) Therapeutic Exercises Supine Exercises clamshell Supine Exercise Name added to HEP Resistance Lvl1 TB Comments vc slow eccentric Piriformis stretch Supine Exercise Name modified, knee to opp jeremi - added to HEP Side right Reps/Minutes x60 ea Comments Fig4 dc'd on R d/t c/o R knee pain Psoas stretch Supine Exercise Name Psoas stretch off table edge Side right Equipment Used w/ strap for gentle overpressure Comments good feedback response Hamstring Stretch Supine Exercise Name HS stretch Side right ITB Stretch Supine Exercise Name ITB Stretch Side right Sidelying Exercises clamshell Sidelying Exercise Name clinic only Side bilateral Resistance lvl 1 tb Comments tactile cues for no pelvic rocking Self-Care/Home Management Treatment Education Patient Education Home Exercise Program Other Education -Educated pt on TFL/ITB anatomy and reviewed HEP supine stretching w/ strap - pt has improved understanding of stretching TFL/ITB. -Discussed getting into/out of car with legs together. -Added to HEP: piriformis stretch, supine clamshell - HO and Lvl1 Tb given. PT-OP-R Modalities Start: 05/23/22 11:17 Freq: Status: Active Protocol: Document 05/23/22 11:15 DCW (Rec: 05/23/22 11:18 DCW [id number]) Iontophoresis Treatment Right Hip Treatment Medication Dexamethasone (-) Medication Amount (mL) (ml) 1.0 Medication Dosage 4 mg/mL Treatment Polarity Negative to Negative Active Electrode Placement GT Bursa PT-OP-T Assessment and Plan Start: 05/21/22 14:07 Freq: Status: Active Protocol: Document 05/31/22 10:00 NBM (Rec: 05/31/22 10:51 NBM [id number]) Physical Therapy Assessment Impairments Impairments Functional Activities, Functional Mobility,Pain,ROM, Soft Tissue Mobility,Strength, Tone Goals Two Impairment Pt struggles to get her foot up in order to don her socks 3Rd Grade Teacher Goal (LTG) Pt to exhibit improved ability to don sock on right foot with improved hip flexion and external rotation to place right foot on left knee. LTG Duration 07/20/22 One Impairment Pt does not have an appropriate home exercise program Short Term Goal (STG) Pt to be independent and compliant with an appropriate HEP (05/27/22): Reviewed ITB stretch. Added seated hamstring stretch to HEP - HO given. STG Duration 06/19/22 Assessment Summary Assessment Pt educated on TFL/ITB anatomy and reviewed HEP supine stretching w/ strap - pt has improved understanding of stretching TFL/ITB. Pt requires cues for core engagement w/ s/l clamshell and hip flexor stretch. Pt is able to perform ITB stretch with education and cueing. Added to HEP: piriformis stretch, supine clamshell - HO and Lvl1 Tb given. Physical Therapy Plan Frequency and Duration Frequency of Treatment 1-2x/week Plan of Care Start Date 05/21/22 Plan of Care End Date 07/19/22 Therapeutic Interventions Therapeutic Interventions Home Exercise Program,Joint Mobilizations,Manual Therapy, Neuromuscular Re-education, Patient/Caregiver Education, Self-Care/Home Management,Soft Tissue Mobilization,Taping, Therapeutic Activities, Therapeutic Exercises Modalities Cold Pack/Ice Massage,Electric Stimulation,Hot Packs, Iontophoresis,Ultrasound Other Therapeutic Interventions Iontophoresis with Dexamethasone, 4 mg/mL Next Visit Focus/Plan Next Note Type Treatment Note Next Visit Plan Review standing hip ex's to issue for HEP. Perform s/l clamshell in clinic only. Stretching, strengthening, Ionto
--- NOTE | 2022-06-06 11:15 | PT.OTN ---
Current Diagnoses Pain in right hip (06/06/22) Pain in right knee (06/06/22) Other bursitis of hip, right hip (06/06/22) Iliotibial band syndrome, right leg (06/06/22) Physical Therapy Treatment Note PT-OP-A Visit Information Start: 05/21/22 14:07 Freq: Status: Active Protocol: Document 06/06/22 10:30 DCW (Rec: 06/06/22 11:15 DCW [id number]) Out-Patient Physical Therapy Visit Information Visit Information Visit Type Treatment Note Visit Start Time 10:30 Visit Stop Time 11:15 Total Visit Minutes 45 Visit Number 5 Number of RESTAURANT COOK Visits 0 Evaluation Information Evaluation Date 05/21/22 PT-OP-B Current Condition Start: 05/21/22 14:07 Freq: Status: Active Protocol: Document 05/21/22 11:15 DCW (Rec: 05/21/22 14:21 DCW [id number]) Current Condition History of Current Condition Onset Date Approx six month history Current Complaints Right hip and knee pain/ stiffness History of Current Condition Pt is a 71 year old female presenting with complaints of hip and knee pain over the past six months. Pt reports that she had been kneeling a lot while gardening, and was having a lot of increased left knee pain, so she was really babying her left leg and trying to not irritate it, but as it improved, her right hip and knee began to bother her a lot more. Currently hurts the most when first getting up from sitting from an extended period of time. Admits it limits her from walking at her normal speed, and even caused her to trip and fall two days ago, because she couldn't lift her right leg up over an obstacle when out hiking. Reports pain is largely located in the lateral hip and knee, it doesn't feel like it is an actual joint problem, just pain around the area of the joints. Treatment Goals Patient/Caregiver Goals Improve right leg pain and stiffness, improve gait speed PT-OP-C Subjective Start: 05/21/22 14:07 Freq: Status: Active Protocol: Document 06/06/22 10:30 DCW (Rec: 06/06/22 11:15 DCW [id number]) OP-PT Subjective Patient Comments Patient Comments I'm feeling better, I'm pretty happy about it. I'm not perfect. PT-OP-F Manual Assessment Start: 05/21/22 14:07 Freq: Status: Active Protocol: Document 05/21/22 11:15 DCW (Rec: 05/21/22 14:21 DCW [id number]) Manual Assessments Soft Tissue Assessment Soft Tissue Mobility Assessment Tenderness to palpation 3/4: wincing and withdraw along right lateral hip, knee, and along ITB. Increased, point- specific pain at location of greater trochanteric bursa Joint Mobility Assessment Joint Mobility Assessment Knee and hip mobility WNL during passive testing, although pt exhibits limitations of movement secondary to hamstring tightness PT-OP-L Special Tests Start: 05/21/22 14:07 Freq: Status: Active Protocol: Document 05/21/22 11:15 DCW (Rec: 05/21/22 14:21 DCW [id number]) Special Tests Hip Special Tests Straight Leg Raise Test Results R hamstring tightness at 65? Piriformis Test Results Negative CAROL Test Results Lateral hip tightness right Knee Special Tests Gordo's Test Test Results Positive R PT-OP-M Strength Start: 05/21/22 14:07 Freq: Status: Active Protocol: Document 05/21/22 11:15 DCW (Rec: 05/21/22 14:21 DCW [id number]) Hip Strength Hip Manual Muscle Testing Right Flexion (L2) 4 Good Abduction 4 Good Adduction 4 Good External Rotation 4+ Good+ Internal Rotation 4+ Good+ Left Flexion (L2) 4- Good- Abduction 4- Good- Adduction 4- Good- External Rotation 4+ Good+ Internal Rotation 4+ Good+ Comments Resisted IR results in increased lateral knee pain PT-OP-Q Treatments Start: 05/21/22 14:07 Freq: Status: Active Protocol: Document 06/06/22 10:30 DCW (Rec: 06/06/22 11:15 DCW [id number]) Therapeutic Exercises Supine Exercises Piriformis stretch Supine Exercise Name modified, knee to opp jeremi Side right Reps/Minutes x60 ea Comments Fig4 dc'd on R d/t c/o R knee pain Hamstring Stretch Supine Exercise Name HS stretch Side right ITB Stretch Supine Exercise Name ITB Stretch Side right Sitting Exercises Piriformis stretch Sitting Exercise Name Seated Figure-4 Side right Standing Exercises Hip Flexors Standing Exercise Name Hip Flexor stretch - Half kneel Side right Bandwalk Standing Exercise Name Lateral Side bilateral Resistance Lv 3 Step-ups Standing Exercise Name Step-ups/downs Side right PT-OP-R Modalities Start: 05/23/22 11:17 Freq: Status: Active Protocol: Document 05/23/22 11:15 DCW (Rec: 05/23/22 11:18 DCW [id number]) Iontophoresis Treatment Right Hip Treatment Medication Dexamethasone (-) Medication Amount (mL) (ml) 1.0 Medication Dosage 4 mg/mL Treatment Polarity Negative to Negative Active Electrode Placement GT Bursa PT-OP-T Assessment and Plan Start: 05/21/22 14:07 Freq: Status: Active Protocol: Document 06/06/22 10:30 DCW (Rec: 06/06/22 11:15 DCW [id number]) Physical Therapy Assessment Impairments Impairments Functional Activities, Functional Mobility,Pain,ROM, Soft Tissue Mobility,Strength, Tone Goals Two Impairment Pt struggles to get her foot up in order to don her socks Long-Term Goal (LTG) Pt to exhibit improved ability to don sock on right foot with improved hip flexion and external rotation to place right foot on left knee. LTG Duration 07/20/22 One Impairment Pt does not have an appropriate home exercise program Short Term Goal (STG) Pt to be independent and compliant with an appropriate HEP (05/27/22): Reviewed ITB stretch. Added seated hamstring stretch to HEP - HO given. STG Duration 06/19/22 Assessment Summary Assessment Today's focus mainly on reviewing HEP and making slight alterations or adding new exercises to ensure pt was feeling the stretch in the proper location. Pt overall feeling much better, very happy with current progress. Physical Therapy Plan Frequency and Duration Frequency of Treatment 1-2x/week Plan of Care Start Date 05/21/22 Plan of Care End Date 07/19/22 Therapeutic Interventions Therapeutic Interventions Home Exercise Program,Joint Mobilizations,Manual Therapy, Neuromuscular Re-education, Patient/Caregiver Education, Self-Care/Home Management,Soft Tissue Mobilization,Taping, Therapeutic Activities, Therapeutic Exercises Modalities Cold Pack/Ice Massage,Electric Stimulation,Hot Packs, Iontophoresis,Ultrasound Other Therapeutic Interventions Iontophoresis with Dexamethasone, 4 mg/mL Next Visit Focus/Plan Next Note Type Treatment Note Next Visit Plan Review standing hip ex's to issue for HEP. Perform s/l yesica in clinic only. Stretching, strengthening, Ionto
--- NOTE | 2022-06-10 12:20 | PT.OTN ---
Current Diagnoses Pain in right hip (06/10/22) Pain in right knee (06/10/22) Other bursitis of hip, right hip (06/10/22) Iliotibial band syndrome, right leg (06/10/22) Physical Therapy Treatment Note PT-OP-A Visit Information Start: 05/21/22 14:07 Freq: Status: Active Protocol: Document 06/10/22 10:35 NBM (Rec: 06/10/22 14:39 NBM [id number]) Out-Patient Physical Therapy Visit Information Visit Information Visit Type Treatment Note Visit Start Time 10:35 Visit Stop Time 11:15 Total Visit Minutes 40 Visit Number 6 Number of CRYSTALIZER OPERATOR Visits 1 Evaluation Information Evaluation Date 05/21/22 PT-OP-B Current Condition Start: 05/21/22 14:07 Freq: Status: Active Protocol: Document 05/21/22 11:15 DCW (Rec: 05/21/22 14:21 DCW [id number]) Current Condition History of Current Condition Onset Date Approx six month history Current Complaints Right hip and knee pain/ stiffness History of Current Condition Pt is a 71 year old female presenting with complaints of hip and knee pain over the past six months. Pt reports that she had been kneeling a lot while gardening, and was having a lot of increased left knee pain, so she was really babying her left leg and trying to not irritate it, but as it improved, her right hip and knee began to bother her a lot more. Currently hurts the most when first getting up from sitting from an extended period of time. Admits it limits her from walking at her normal speed, and even caused her to trip and fall two days ago, because she couldn't lift her right leg up over an obstacle when out hiking. Reports pain is largely located in the lateral hip and knee, it doesn't feel like it is an actual joint problem, just pain around the area of the joints. Treatment Goals Patient/Caregiver Goals Improve right leg pain and stiffness, improve gait speed PT-OP-C Subjective Start: 05/21/22 14:07 Freq: Status: Active Protocol: Document 06/10/22 10:35 NBM (Rec: 06/10/22 14:39 NBM [id number]) OP-PT Subjective Patient Comments Patient Comments Pt reports she could not figure out how to get a hip flexor stretch from the standing one with the chair, and her bed seems to be too low but she did not try it with a strap. She can't do the sitting figure 4 like the picture. PT-OP-F Manual Assessment Start: 05/21/22 14:07 Freq: Status: Active Protocol: Document 05/21/22 11:15 DCW (Rec: 05/21/22 14:21 DCW [id number]) Manual Assessments Soft Tissue Assessment Soft Tissue Mobility Assessment Tenderness to palpation 3/4: wincing and withdraw along right lateral hip, knee, and along ITB. Increased, point- specific pain at location of greater trochanteric bursa Joint Mobility Assessment Joint Mobility Assessment Knee and hip mobility WNL during passive testing, although pt exhibits limitations of movement secondary to hamstring tightness PT-OP-L Special Tests Start: 05/21/22 14:07 Freq: Status: Active Protocol: Document 05/21/22 11:15 DCW (Rec: 05/21/22 14:21 DCW [id number]) Special Tests Hip Special Tests Straight Leg Raise Test Results R hamstring tightness at 65? Piriformis Test Results Negative CAROL Test Results Lateral hip tightness right Knee Special Tests Gordo's Test Test Results Positive R PT-OP-M Strength Start: 05/21/22 14:07 Freq: Status: Active Protocol: Document 05/21/22 11:15 DCW (Rec: 05/21/22 14:21 DCW [id number]) Hip Strength Hip Manual Muscle Testing Right Flexion (L2) 4 Good Abduction 4 Good Adduction 4 Good External Rotation 4+ Good+ Internal Rotation 4+ Good+ Left Flexion (L2) 4- Good- Abduction 4- Good- Adduction 4- Good- External Rotation 4+ Good+ Internal Rotation 4+ Good+ Comments Resisted IR results in increased lateral knee pain PT-OP-Q Treatments Start: 05/21/22 14:07 Freq: Status: Active Protocol: Document 06/10/22 10:35 NBM (Rec: 06/10/22 14:39 NBM [id number]) Therapeutic Exercises Supine Exercises clamshell Resistance Lvl1 TB Comments good form Piriformis stretch Supine Exercise Name modified, knee to opp jeremi Side right Equipment Used w/strap Reps/Minutes x60 ea Comments strap needd for enough pressure for stretch Psoas stretch Supine Exercise Name Psoas stretch off table edge Side bilateral Equipment Used w/ strap for gentle overpressure Reps/Minutes x60s ea Comments good feedback response - will try at home w/ strap Hamstring Stretch Supine Exercise Name HS stretch Side bilateral Equipment Used w/ strap ITB Stretch Supine Exercise Name ITB Stretch Side bilateral Equipment Used w/strap Standing Exercises Bandwalk Standing Exercise Name Lateral Side bilateral Resistance Lv 3 Reps/Minutes 2 x 10 reps ea Comments Pt was doing 5-6 sets attempting to get to 10 sets instead of 10 reps PT-OP-R Modalities Start: 05/23/22 11:17 Freq: Status: Active Protocol: Document 05/23/22 11:15 DCW (Rec: 05/23/22 11:18 DCW [id number]) Iontophoresis Treatment Right Hip Treatment Medication Dexamethasone (-) Medication Amount (mL) (ml) 1.0 Medication Dosage 4 mg/mL Treatment Polarity Negative to Negative Active Electrode Placement GT Bursa PT-OP-T Assessment and Plan Start: 05/21/22 14:07 Freq: Status: Active Protocol: Document 06/10/22 10:35 NBM (Rec: 06/10/22 14:39 NBM [id number]) Physical Therapy Assessment Impairments Impairments Functional Activities, Functional Mobility,Pain,ROM, Soft Tissue Mobility,Strength, Tone Goals Two Impairment Pt struggles to get her foot up in order to don her socks Criminal Justice Lawyer Goal (LTG) Pt to exhibit improved ability to don sock on right foot with improved hip flexion and external rotation to place right foot on left knee. LTG Duration 07/20/22 One Impairment Pt does not have an appropriate home exercise program Short Term Goal (STG) Pt to be independent and compliant with an appropriate HEP (05/27/22): Reviewed ITB stretch. Added seated hamstring stretch to HEP - HO given. STG Duration 06/19/22 Assessment Summary Assessment Pt continues to progress overall and is HEP compliant but presents with questions about HEP. Treatment focus on further HEP review for stretching and lower extremity strengthening. Pt has been performing 5-6 sets x10 bandwalks attempting to get to 10 sets instead of 10 repetitions and has improved understanding of instructions for this ex with review. Today she demonstrates good form with sidelying yesica in clinic. She is able to achieve a gentle hip flexor stretch using Leonardo position w/ instructions for strap for gentle overpressure and has a positive feedback response. Physical Therapy Plan Frequency and Duration Frequency of Treatment 1-2x/week Plan of Care Start Date 05/21/22 Plan of Care End Date 07/19/22 Therapeutic Interventions Therapeutic Interventions Home Exercise Program,Joint Mobilizations,Manual Therapy, Neuromuscular Re-education, Patient/Caregiver Education, Self-Care/Home Management,Soft Tissue Mobilization,Taping, Therapeutic Activities, Therapeutic Exercises Modalities Cold Pack/Ice Massage,Electric Stimulation,Hot Packs, Iontophoresis,Ultrasound Other Therapeutic Interventions Iontophoresis with Dexamethasone, 4 mg/mL Next Visit Focus/Plan Next Note Type Treatment Note Next Visit Plan Check on psoas stretch on bed with strap. Review standing hip ex's to issue for HEP. Perform s/l clamshell in clinic only. Stretching, strengthening, Ionto
--- NOTE | 2022-06-13 11:17 | PT.OTN ---
Current Diagnoses Pain in right hip (06/13/22) Pain in right knee (06/13/22) Other bursitis of hip, right hip (06/13/22) Iliotibial band syndrome, right leg (06/13/22) Physical Therapy Treatment Note PT-OP-A Visit Information Start: 05/21/22 14:07 Freq: Status: Active Protocol: Document 06/13/22 10:35 DCW (Rec: 06/13/22 11:17 DCW [id number]) Out-Patient Physical Therapy Visit Information Visit Information Visit Type Treatment Note Visit Start Time 10:35 Visit Stop Time 11:15 Total Visit Minutes 40 Visit Number 7 Number of OUTSIDE SALES ENGINEER Visits 0 Evaluation Information Evaluation Date 05/21/22 PT-OP-B Current Condition Start: 05/21/22 14:07 Freq: Status: Active Protocol: Document 05/21/22 11:15 DCW (Rec: 05/21/22 14:21 DCW [id number]) Current Condition History of Current Condition Onset Date Approx six month history Current Complaints Right hip and knee pain/ stiffness History of Current Condition Pt is a 71 year old female presenting with complaints of hip and knee pain over the past six months. Pt reports that she had been kneeling a lot while gardening, and was having a lot of increased left knee pain, so she was really babying her left leg and trying to not irritate it, but as it improved, her right hip and knee began to bother her a lot more. Currently hurts the most when first getting up from sitting from an extended period of time. Admits it limits her from walking at her normal speed, and even caused her to trip and fall two days ago, because she couldn't lift her right leg up over an obstacle when out hiking. Reports pain is largely located in the lateral hip and knee, it doesn't feel like it is an actual joint problem, just pain around the area of the joints. Treatment Goals Patient/Caregiver Goals Improve right leg pain and stiffness, improve gait speed PT-OP-C Subjective Start: 05/21/22 14:07 Freq: Status: Active Protocol: Document 06/13/22 10:35 DCW (Rec: 06/13/22 11:17 DCW [id number]) OP-PT Subjective Patient Comments Patient Comments I'd feel better if I were actually doing my exercises twice a day like I'm supposed to. PT-OP-F Manual Assessment Start: 05/21/22 14:07 Freq: Status: Active Protocol: Document 05/21/22 11:15 DCW (Rec: 05/21/22 14:21 DCW [id number]) Manual Assessments Soft Tissue Assessment Soft Tissue Mobility Assessment Tenderness to palpation 3/4: wincing and withdraw along right lateral hip, knee, and along ITB. Increased, point- specific pain at location of greater trochanteric bursa Joint Mobility Assessment Joint Mobility Assessment Knee and hip mobility WNL during passive testing, although pt exhibits limitations of movement secondary to hamstring tightness PT-OP-L Special Tests Start: 05/21/22 14:07 Freq: Status: Active Protocol: Document 05/21/22 11:15 DCW (Rec: 05/21/22 14:21 DCW [id number]) Special Tests Hip Special Tests Straight Leg Raise Test Results R hamstring tightness at 65? Piriformis Test Results Negative CAROL Test Results Lateral hip tightness right Knee Special Tests Gordo's Test Test Results Positive R PT-OP-M Strength Start: 05/21/22 14:07 Freq: Status: Active Protocol: Document 05/21/22 11:15 DCW (Rec: 05/21/22 14:21 DCW [id number]) Hip Strength Hip Manual Muscle Testing Right Flexion (L2) 4 Good Abduction 4 Good Adduction 4 Good External Rotation 4+ Good+ Internal Rotation 4+ Good+ Left Flexion (L2) 4- Good- Abduction 4- Good- Adduction 4- Good- External Rotation 4+ Good+ Internal Rotation 4+ Good+ Comments Resisted IR results in increased lateral knee pain PT-OP-Q Treatments Start: 05/21/22 14:07 Freq: Status: Active Protocol: Document 06/13/22 10:35 DCW (Rec: 06/13/22 11:17 DCW [id number]) Therapeutic Exercises Sitting Exercises Self-STM Sitting Exercise Name Tennis ball on piriformis Piriformis stretch Sitting Exercise Name Stopped due to knee pain Standing Exercises Bandwalk Standing Exercise Name Lateral Side bilateral Resistance Green Step-ups Standing Exercise Name Step-ups/downs Side right Equipment Used 6 step Skaters Standing Exercise Name Skaters (combined hip extension/abduction) Side bilateral Resistance Green PT-OP-R Modalities Start: 05/23/22 11:17 Freq: Status: Active Protocol: Document 05/23/22 11:15 DCW (Rec: 05/23/22 11:18 DCW [id number]) Iontophoresis Treatment Right Hip Treatment Medication Dexamethasone (-) Medication Amount (mL) (ml) 1.0 Medication Dosage 4 mg/mL Treatment Polarity Negative to Negative Active Electrode Placement GT Bursa PT-OP-T Assessment and Plan Start: 05/21/22 14:07 Freq: Status: Active Protocol: Document 06/13/22 10:35 DCW (Rec: 06/13/22 11:17 DCW [id number]) Physical Therapy Assessment Impairments Impairments Functional Activities, Functional Mobility,Pain,ROM, Soft Tissue Mobility,Strength, Tone Goals Two Impairment Pt struggles to get her foot up in order to don her socks Fitness Sales Consultant Goal (LTG) Pt to exhibit improved ability to don sock on right foot with improved hip flexion and external rotation to place right foot on left knee. LTG Duration 07/20/22 One Impairment Pt does not have an appropriate home exercise program Short Term Goal (STG) Pt to be independent and compliant with an appropriate HEP (05/27/22): Reviewed ITB stretch. Added seated hamstring stretch to HEP - HO given. STG Duration 06/19/22 Assessment Summary Assessment Pt progressing well, does admit that she struggle with self-motivation to perform HEP , but notes she always feels substantially better when she does do it. Will likely discharge following next scheduled visit to independent HEP. Physical Therapy Plan Frequency and Duration Frequency of Treatment 1-2x/week Plan of Care Start Date 05/21/22 Plan of Care End Date 07/19/22 Therapeutic Interventions Therapeutic Interventions Home Exercise Program,Joint Mobilizations,Manual Therapy, Neuromuscular Re-education, Patient/Caregiver Education, Self-Care/Home Management,Soft Tissue Mobilization,Taping, Therapeutic Activities, Therapeutic Exercises Modalities Cold Pack/Ice Massage,Electric Stimulation,Hot Packs, Iontophoresis,Ultrasound Other Therapeutic Interventions Iontophoresis with Dexamethasone, 4 mg/mL Next Visit Focus/Plan Next Note Type Treatment Note Next Visit Plan Check on psoas stretch on bed with strap. Review standing hip ex's to issue for HEP. Perform s/l clamshell in clinic only. Stretching, strengthening, Ionto
--- NOTE | 2022-06-17 17:23 | PT.OTN ---
Current Diagnoses Pain in right hip (06/17/22) Pain in right knee (06/17/22) Other bursitis of hip, right hip (06/17/22) Iliotibial band syndrome, right leg (06/17/22) Physical Therapy Treatment Note PT-OP-A Visit Information Start: 05/21/22 14:07 Freq: Status: Active Protocol: Document 06/17/22 16:45 DCW (Rec: 06/17/22 17:23 DCW [id number]) Out-Patient Physical Therapy Visit Information Visit Information Visit Type Discharge Summary Visit Start Time 16:45 Visit Stop Time 17:15 Total Visit Minutes 30 Visit Number 8 Number of PREDICTIVE MAINTENANCE TECHNICIAN Visits 0 Evaluation Information Evaluation Date 05/21/22 PT-OP-B Current Condition Start: 05/21/22 14:07 Freq: Status: Active Protocol: Document 05/21/22 11:15 DCW (Rec: 05/21/22 14:21 DCW [id number]) Current Condition History of Current Condition Onset Date Approx six month history Current Complaints Right hip and knee pain/ stiffness History of Current Condition Pt is a 71 year old female presenting with complaints of hip and knee pain over the past six months. Pt reports that she had been kneeling a lot while gardening, and was having a lot of increased left knee pain, so she was really babying her left leg and trying to not irritate it, but as it improved, her right hip and knee began to bother her a lot more. Currently hurts the most when first getting up from sitting from an extended period of time. Admits it limits her from walking at her normal speed, and even caused her to trip and fall two days ago, because she couldn't lift her right leg up over an obstacle when out hiking. Reports pain is largely located in the lateral hip and knee, it doesn't feel like it is an actual joint problem, just pain around the area of the joints. Treatment Goals Patient/Caregiver Goals Improve right leg pain and stiffness, improve gait speed PT-OP-C Subjective Start: 05/21/22 14:07 Freq: Status: Active Protocol: Document 06/17/22 16:45 DCW (Rec: 06/17/22 17:23 DCW [id number]) OP-PT Subjective Patient Comments Patient Comments I've adopted a lot of exercises for myself after coming in here, I think it's been really beneficial. PT-OP-F Manual Assessment Start: 05/21/22 14:07 Freq: Status: Active Protocol: Document 05/21/22 11:15 DCW (Rec: 05/21/22 14:21 DCW [id number]) Manual Assessments Soft Tissue Assessment Soft Tissue Mobility Assessment Tenderness to palpation 3/4: wincing and withdraw along right lateral hip, knee, and along ITB. Increased, point- specific pain at location of greater trochanteric bursa Joint Mobility Assessment Joint Mobility Assessment Knee and hip mobility WNL during passive testing, although pt exhibits limitations of movement secondary to hamstring tightness PT-OP-L Special Tests Start: 05/21/22 14:07 Freq: Status: Active Protocol: Document 05/21/22 11:15 DCW (Rec: 05/21/22 14:21 DCW [id number]) Special Tests Hip Special Tests Straight Leg Raise Test Results R hamstring tightness at 65? Piriformis Test Results Negative CAROL Test Results Lateral hip tightness right Knee Special Tests Gordo's Test Test Results Positive R PT-OP-M Strength Start: 05/21/22 14:07 Freq: Status: Active Protocol: Document 05/21/22 11:15 DCW (Rec: 05/21/22 14:21 DCW [id number]) Hip Strength Hip Manual Muscle Testing Right Flexion (L2) 4 Good Abduction 4 Good Adduction 4 Good External Rotation 4+ Good+ Internal Rotation 4+ Good+ Left Flexion (L2) 4- Good- Abduction 4- Good- Adduction 4- Good- External Rotation 4+ Good+ Internal Rotation 4+ Good+ Comments Resisted IR results in increased lateral knee pain PT-OP-Q Treatments Start: 05/21/22 14:07 Freq: Status: Active Protocol: Document 06/17/22 16:45 DCW (Rec: 06/17/22 17:23 DCW [id number]) Therapeutic Exercises Supine Exercises Piriformis stretch Supine Exercise Name modified, knee to opp jeremi Side right Equipment Used w/strap Reps/Minutes x60 ea Comments strap needd for enough pressure for stretch Hamstring Stretch Supine Exercise Name HS stretch Side bilateral Equipment Used w/ strap ITB Stretch Supine Exercise Name ITB Stretch Side bilateral Equipment Used w/strap Standing Exercises Bandwalk Standing Exercise Name Lateral Side bilateral Resistance Green Comments VCs for core stabilization Step-ups Standing Exercise Name Step-ups/downs Side bilateral Equipment Used 6 step Skaters Standing Exercise Name Skaters (combined hip extension/abduction) Side bilateral Resistance Green PT-OP-R Modalities Start: 05/23/22 11:17 Freq: Status: Active Protocol: Document 05/23/22 11:15 DCW (Rec: 05/23/22 11:18 DCW [id number]) Iontophoresis Treatment Right Hip Treatment Medication Dexamethasone (-) Medication Amount (mL) (ml) 1.0 Medication Dosage 4 mg/mL Treatment Polarity Negative to Negative Active Electrode Placement GT Bursa PT-OP-T Assessment and Plan Start: 05/21/22 14:07 Freq: Status: Active Protocol: Document 06/17/22 16:45 DCW (Rec: 06/17/22 17:23 DCW [id number]) Physical Therapy Assessment Impairments Impairments Functional Activities, Functional Mobility,Pain,ROM, Soft Tissue Mobility,Strength, Tone Goals Two Impairment Pt struggles to get her foot up in order to don her socks Penitentiary Goal (LTG) Pt to exhibit improved ability to don sock on right foot with improved hip flexion and external rotation to place right foot on left knee. LTG Duration Met One Impairment Pt does not have an appropriate home exercise program Short Term Goal (STG) Pt to be independent and compliant with an appropriate HEP (05/27/22): Reviewed ITB stretch. Added seated hamstring stretch to HEP - HO given. STG Duration Met Assessment Summary Assessment Pt feels comfortable with current level of function, demonstrates good understanding with independent HEP, appropriate for discharge at this time. Physical Therapy Plan Frequency and Duration Frequency of Treatment 1-2x/week Plan of Care Start Date 05/21/22 Plan of Care End Date 07/19/22 Therapeutic Interventions Therapeutic Interventions Home Exercise Program,Joint Mobilizations,Manual Therapy, Neuromuscular Re-education, Patient/Caregiver Education, Self-Care/Home Management,Soft Tissue Mobilization,Taping, Therapeutic Activities, Therapeutic Exercises Modalities Cold Pack/Ice Massage,Electric Stimulation,Hot Packs, Iontophoresis,Ultrasound Other Therapeutic Interventions Iontophoresis with Dexamethasone, 4 mg/mL Discharge Physical Therapy Discharge Reasons Goals Met Next Visit Focus/Plan Next Note Type Discharge Summary
== END 2022-09-26 14:55 | disposition home or self-care (01) ==
LOC: PHYS 16:45
PROVIDERS: Family Provider Nurse Practitioner; PCP Nurse Practitioner; Referring Provider Nurse Practitioner; Visit Provider Nurse Practitioner
DX: M25.561 Pain in right knee (principal); M25.551 Pain in right hip; M70.71 Other bursitis of hip, right hip; M76.31 Iliotibial band syndrome, right leg
CPT/HCPCS: 97110; 97161; 97535

== ENCOUNTER → 2022-10-09 11:35 | Outpatient (CLI) | payer MEDICARE, SELFPAY ==
[2022-10-09 13:54] LABS: Thyroid Stimulating Hormone 2.79 uIU/mL (0.47-4.68)
== END ==
PROVIDERS: Family Provider Nurse Practitioner; PCP Nurse Practitioner; Referring Provider Nurse Practitioner; Visit Provider Nurse Practitioner
DX: E03.9 Hypothyroidism, unspecified (principal)
CPT/HCPCS: 36415; 84443

== ENCOUNTER → 2023-05-19 08:26 | Outpatient (CLI) | payer MEDICARE, SELFPAY ==
[2023-05-19 09:42] LABS: Alanine Aminotransferase 23 IU/L (<35); Albumin Globulin Ratio 1.5 (1.0-2.8); Alkaline Phosphatase 74 U/L (38-126); Aspartate Aminotransferase 24 IU/L (14-36); BUN Creatinine Ratio 27.1 (6-22); Bilirubin Total 0.5 mg/dL (0.2-1.3); Blood Urea Nitrogen 16 mg/dL (7-17); Calcium 9.6 mg/dL (8.4-10.2); Carbon Dioxide 29 mmol/L (22-32); Chloride 103 mmol/L (98-107); Cholesterol 229 mg/dL (140-199); Estimated Glomerular Filt Rate > 60 mL/min (>60); Globulin 2.6 g/dL (1.7-4.1); Glucose 101 mg/dL (80-110); HDL Cholesterol 81 mg/dL (40-60); HEMOLYSIS < 15 (0-50); LDL Cholesterol Calculated 133 mg/dL (<100); Potassium 4.7 mmol/L (3.4-5.1); Sodium 136 mmol/L (137-145); Total Protein 6.6 g/dL (6.3-8.2); Triglycerides 75 mg/dL (35-150)
[2023-05-19 09:49] LABS: Free T3, Triiodothyronine Free 4.16 pg/mL (2.77-5.27); Free T4, Direct Thyroxine 1.19 ng/dL (0.78-2.19)
[2023-05-19 10:03] LABS: Thyroid Stimulating Hormone 2.36 uIU/mL (0.47-4.68)
== END ==
PROVIDERS: Family Provider Nurse Practitioner; PCP Nurse Practitioner; Referring Provider Nurse Practitioner; Visit Provider Nurse Practitioner
DX: F98.8 Other specified behavioral and emotional disorders with onset usually occurring in childhood and adolescence (principal); E78.00 Pure hypercholesterolemia, unspecified; Z79.899 Other long term (current) drug therapy
CPT/HCPCS: 36415; 80053; 80061; 84439; 84443; 84481

== ENCOUNTER 2023-11-28 00:10 | Emergency (ER) | payer MEDICARE, SELFPAY ==
[2023-11-28 00:12] VITALS: BP 128/61; PULSE 99; O2SAT 98
[2023-11-28 00:15] VITALS: BP 128/61; PULSE 92; RESP 16; TEMP 36.6; O2SAT 99; BMI 24.7
[2023-11-28 00:30] VITALS: BP 121/64; PULSE 101; O2SAT 98
[2023-11-28 01:00] VITALS: BP 106/54; PULSE 95; RESP 16; TEMP 36.2; O2SAT 97
--- NOTE | 2023-11-28 01:05 | ED_ITS ---
HPI - Extremity Problem General Chief complaint: Extremity Problem,Nontraumatic Stated complaint: BLE Pain Time Seen by Provider: 11/28/23 00:15 Source: patient and EMS Mode of arrival: EMS History of Present Illness HPI Narrative: 73-year-old woman on Adderall was her only medical interventions had pizza tonight followed by severe abdominal cramping and 20 minutes of profuse diarrhea that then resolved the abdominal cramping. She had a mild headache to some ibuprofen before bed. Was awakened from sleep with bilateral severe thigh pain that was not influenced by standing, moving, walking. She describes it as some of the worst pain she is ever experienced. Her daughter was concerned enough that 911 was called. By the time patient was EN route to the hospital the pain completely resolved. She has never had similar findings. Did not notice rashes, has not had recent fevers. At this point she is completely pain-free feels she is back to normal and is a bit sheepish about being in the emergency department at all. Related Data Home Medications Medication Instructions Recorded Confirmed Osteo Move 1 tab PO .QD 03/25/22 11/03/23 vitamin B complex 1 cap PO DAILY 03/25/22 11/03/23 Previous Rx's Medication Instructions Recorded dextroamphetamine-amphetamine ER 40 mg (2 x 20 mg) PO QAM #60 caps 11/17/23 20 mg 24hr capsule,extend release (Adderall XR) Allergies Allergy/AdvReac Type Severity Reaction Status Date / Time No Known Drug Allergies Allergy Unverified 11/03/23 15:28 Review of Systems Review of Systems Narrative: Pertinent positive and negative findings as per HPI Patient History Medical History ADD (attention deficit disorder) without hyperactivity HLD (hyperlipidemia) Rosacea Eczema (~1999) Acne (~1965) Chicken pox (~1960) Cataracts, bilateral (~2015) Herpes (~1973) History of urinary incontinence (~2019) Acute viral syndrome Right kidney stone (~2017) Surgical History Anesthesia History of tubal ligation (~1992) Family History Father History of heart disease Mother Congestive heart failure History of heart disease Brother Cancer Lymphoma Dementia Brother Lung transplant failure Brother Respiratory disorder Brother Cancer of neck Stroke Social History household members: spouse Smoking Status: Former smoker Smoking Status: Former smoker alcohol intake frequency: 3 or more drinks per day Substance Use Type: marijuana Exam Initial Vital Signs Initial Vital Signs: Vital Signs Temperature 97.8 F 11/28/23 00:15 Pulse Rate 92 H 11/28/23 00:15 Respiratory Rate 16 11/28/23 00:15 Blood Pressure 128/61 11/28/23 00:15 Pulse Oximetry 99 11/28/23 00:15 Oxygen Delivery Method Room Air 11/28/23 00:15 General: Healthy appearing, in no acute distress. Able to give a complete and coherent history. Well-nourished well-developed Respiratory: Lungs are clear to auscultation, no wheezing no rales no rhonchi. Full and symmetrical air movement Cardiac: Regular rate and rhythm no murmurs no bruits Abdomen: Soft, nontender, good bowel tones, no flank pain Skin: Warm and dry, no rashes Neurologic: Grossly neurologically intact with no obvious asymmetries or abnor malities Extremities: No trauma, well perfused, good distal pulses, pain-free Psych: Cooperative, appropriate insight and affect Course Vital Signs Vital signs: Vital Signs - 8 hr 11/28/23 00:15 Temperature 97.8 F Pulse Rate 92 H Respiratory Rate 16 Blood Pressure 128/61 Pulse Oximetry 99 Oxygen Delivery Method Room Air MDM - Extremity (Nontraumatic) MDM Narrative Medical decision making narrative: CC: Diarrhea followed by severe bilateral thigh pain Complicating co-morbidities: ADHD Data collected from: patient Differential considered: Gastroenteritis, musculoskeletal abnormality, radicular pain, vascular abnormality Exam documented above, pertinent findings include: Exam is entirely benign and all symptoms have completely resolved Discussion: 73-year-old woman with abdominal pain and cramping associated diarrhea after eating pizza tonight and then had brief episode of bilateral severe thigh pain that was not associated with back pain, vascular abnormalities fever. She was able to walk without exacerbation of the pain and the pain spontaneously resolved. I do not have a complete explanation for the bilateral thigh pain and I did share this with her. We talked about the fact that body's will often declare themselves. I encouraged her to return to the emergency department if she has new symptoms or additional findings that would point me in an appropriate direction for further workup. She is safe for discharge Discharge Plan Departure Patient Disposition: Home Clinical Impression: Diarrhea Qualifiers: Diarrhea type: unspecified type Qualified Code(s): R19.7 - Diarrhea, unspecified Acute leg pain Qualifiers: Laterality: unspecified laterality Qualified Code(s): M79.606 - Pain in leg, unspecified Activity Restrictions/Additional Instructions: Thank you for coming in tonight It sounds like your body effectively dealt with the pizza and the diarrhea caused. I do not have an explanation for the severe bilateral leg pain that has resolved completely. At this point I think it is okay to go home and if you have new or worsening symptoms please feel free to return to the emergency department Using 400 mg of ibuprofen (2 [id number] pills) and 1 Tylenol every 6 hours can be very helpful in controlling pain. Prescriptions: No Action dextroamphetamine-amphetamine [Adderall XR] 20 mg capsule,extended release 24hr 40 mg PO QAM Qty: 60 0RF vitamin B complex Capsule 1 cap PO DAILY Osteo Move 1 tab PO .QD Referrals: Debra Garcia ARNP [Primary Care Provider] - Stand Alone Forms: Patient Portal/API
== END 2023-11-28 01:18 | disposition home or self-care (01) ==
PROVIDERS: Emergency Provider Emergency Medicine; Family Provider Nurse Practitioner; PCP Nurse Practitioner
DX: R19.7 Diarrhea, unspecified (principal); M79.605 Pain in left leg; M79.604 Pain in right leg; R10.9 Unspecified abdominal pain
CPT/HCPCS: 99281

== ENCOUNTER → 2024-02-20 10:19 | Outpatient (CLI) | payer MEDICARE, SELFPAY | PROVIDERS: Family Provider Nurse Practitioner; PCP Family Medicine; Visit Provider Nurse Practitioner Family | DX: R30.0 Dysuria (principal) | CPT/HCPCS: 87086 ==

== ENCOUNTER → 2024-06-18 16:40 | Outpatient (CLI) | payer MEDICARE, SELFPAY | PROVIDERS: Family Provider Nurse Practitioner; PCP Family Medicine; Visit Provider Nurse Practitioner Family | DX: R30.0 Dysuria (principal) | CPT/HCPCS: 87077; 87086; 87186 ==

== ENCOUNTER → 2024-10-29 09:36 | Outpatient (CLI) | payer MEDICARE, OTHER, SELFPAY ==
[2024-10-29 10:50] LABS: Add Manual Diff / Slide Review NO; Hematocrit 39.3 % (36-46); Hemoglobin 13.2 g/dL (12.0-16.0); Lymphocytes Absolute Auto 1100 /uL (1100-4500); Mean Corpuscular HGB Conc 33.5 % (30-36); Mean Corpuscular Hemoglobin 31.1 PG (26-34); Mean Corpuscular Volume 92.8 fL (80-100); Platelet Count 171 X10^3/uL (150-400)
[2024-10-29 10:55] LABS: Alanine Aminotransferase 25 IU/L (<35); Albumin 3.8 g/dL (3.5-5.0); Albumin Globulin Ratio 1.7 (1.0-2.8); Alkaline Phosphatase 88 U/L (38-126); Blood Urea Nitrogen 25 mg/dL (7-17); Calcium 9.1 mg/dL (8.4-10.2); Carbon Dioxide 26 mmol/L (22-32); Chloride 107 mmol/L (98-107); Cholesterol 220 mg/dL (140-199); Estimated Glomerular Filt Rate > 60 mL/min (>60); Globulin 2.3 g/dL (1.7-4.1); Glucose 124 mg/dL (70-99); HDL Cholesterol 77 mg/dL (40-60); HEMOLYSIS < 15 (0-50); Potassium 4.5 mmol/L (3.4-5.1); Sodium 140 mmol/L (137-145); Total Protein 6.1 g/dL (6.3-8.2); Triglycerides 65 mg/dL (35-150)
[2024-10-29 11:25] LABS: TSH w/ Reflex to FT4 2.02 uIU/mL (0.47-4.68)
== END ==
PROVIDERS: PCP Family Medicine; Referring Provider Family Medicine; Visit Provider Family Medicine
DX: E78.5 Hyperlipidemia, unspecified (principal); F98.8 Other specified behavioral and emotional disorders with onset usually occurring in childhood and adolescence; L30.9 Dermatitis, unspecified
CPT/HCPCS: 36415; 80053; 80061; 84443; 85025